=== PATIENT | female | born 1940 | race Caucasian/White ===

== ENCOUNTER 2017-08-14 11:52 | Observation (INO) | payer MEDICARE, BC ==
[2017-08-14] MEDS ORDERED: KETOROLAC 30 MG/ML 1 ML VIAL IVP STA (12:23)
[2017-08-14] MEDS ORDERED: SODIUM CHLORIDE 0.9% 1,000 ML IV STA (12:23)
--- NOTE | 2017-08-14 12:50 | XR ---
EXAMINATION TYPE: XR chest 2V DATE OF EXAM: 08/14/2017 COMPARISON: Nuclear medicine total-body bone scan dated 01/26/2014. HISTORY: Chest pain with history of lung, breast and colon cancer. TECHNIQUE: Frontal and lateral views of the chest are obtained. FINDINGS: There is elevation of the right hemidiaphragm obscuring the right lower lobe on the fronta l image. No focal airspace disease is seen on the lateral image. Copious overlying soft tissues also partially obscure the lung bases on the frontal image. There is slight patient rotation shifting the mediastinum. No pneumothorax or sizable pleural effusion. Heart is upper limits of normal. Moderate m ultilevel degenerative changes of the thoracic spine are present. IMPRESSION: Right hemidiaphragm elevation and copious soft tissues obscure the frontal view of the l ower lobes however no focal consolidation or pleural effusion are seen on the lateral image.
[2017-08-14 12:54] LABS: Basophils # (A) 0.1 k/uL (0-0.2); Basophils % (A) 2 %; CH 31.4; CHCM 31.3; Eosinophils % (A) 1 %; HCT 45.7 % (34.0-46.0); HDW 2.51; HGB 14.6 gm/dL (11.4-16.0); Hypochromasia Slight; Luc # (Auto) 0.14; Luc % (Auto) 4; Lymphocytes # (A) 1.1 k/uL (1.0-4.8); Lymphocytes % (A) 31 %; MCH 32.1 pg (25.0-35.0); MCHC 31.9 g/dL (31.0-37.0); MCV 100.6 fL (80.0-100.0); Macrocytosis Slight; Monocytes # (A) 0.5 k/uL (0-1.0); Monocytes % (A) 13 %; Neutrophils # (A) 1.8 k/uL (1.3-7.7); Neutrophils % (A) 49 %; RBC 4.54 m/uL (3.80-5.40); RDW 14.7 % (11.5-15.5); WBC 3.6 k/uL (3.8-10.6)
[2017-08-14 13:03] LABS: Calcium 10.7 mg/dL (8.4-10.2); Total Bilirubin 0.6 mg/dL (0.2-1.3); Total Protein 7.4 g/dL (6.3-8.2)
--- NOTE | 2017-08-14 13:06 | ED ---
Chest Pain HPI - General Chief Complaint: Chest Pain Stated Complaint: Chest Pain Time Seen by Provider: 08/14/17 12:12 Source: patient, family, RN notes reviewed Mode of arrival: wheelchair Limitations: no limitations - History of Present Illness Initial Comments: This is a 76-year-old female who presents with complaints of chest pain is been going on for the past 2 weeks she states is fairly constant at worse this morning midsternal not really increasing with deep breathing though she feels that sometimes and she agrees also with certain movements he can feel it. She has a cough or phlegm production fevers chills or sweats. She also states she has some numbness to her lips bilaterally this morning when the pain was worse. She states was 7 and 8/10 severity. Sharp in nature but for the most part she cannot describe the pain. It does not seem to radiate. No dyspnea and no exertional dyspnea. MD Complaint: chest pain - Related Data Home Medications Medication Instructions Recorded Confirmed ALPRAZolam [Xanax] 0.25 mg PO DAILY PRN 08/14/17 08/14/17 Aspirin 325 mg PO DAILY 08/14/17 08/14/17 Benazepril HCl [Lotensin] 20 mg PO DAILY 08/14/17 08/14/17 Insulin NPH/Reg Insulin 70/30 30 units SQ BID 08/14/17 08/14/17 [humuLIN 70/30 VIAL] Allergies Allergy/AdvReac Type Severity Reaction Status Date / Time codeine Allergy Rash/Hives Verified 08/14/17 12:46 Review of Systems ROS Statement: Those systems with pertinent positive or pertinent negative responses have been documented in the HPI. ROS Other: All systems not noted in ROS Statement are negative. EKG Findings - EKG Results: EKG: interpreted by REYMUNDO, sinus rhythm (Sinus rhythm with a rate of 68. Interval 148 QRS 80 QT since QTC of 380/412 this is a normal-appearing EKG) Past Medical History Past Medical History: Cancer, Diabetes Mellitus, Hypertension Additional Past Medical History / Comment(s): lung ,colon and breast cancer History of Any Multi-Drug Resistant Organisms: None Reported Past Surgical History: Cholecystectomy, Hysterectomy Past Psychological History: No Psychological Hx Reported Smoking Status: Former smoker Past Alcohol Use History: Rare Past Drug Use History: None Reported General Exam - General Exam Comments Initial Comments: This is a well up well-nourished awake alert oriented 3 female Limitations: no limitations General appearance: alert, anxious Head exam: Present: atraumatic, normocephalic, normal inspection Eye exam: Present: normal appearance, PERRL, EOMI. Absent: scleral icterus, conjunctival injection, periorbital swelling ENT exam: Present: normal exam, mucous membranes moist Neck exam: Present: normal inspection. Absent: tenderness, meningismus, lymphadenopathy Respiratory exam: Present: normal lung sounds bilaterally, chest wall tenderness. Absent: respiratory distress, wheezes, rales, rhonchi, stridor Cardiovascular Exam: Present: regular rate, normal rhythm, normal heart sounds. Absent: systolic murmur, diastolic murmur, rubs, gallop, clicks GI/Abdominal exam: Present: soft, normal bowel sounds. Absent: distended, tenderness, guarding, rebound, rigid Extremities exam: Present: normal inspection, full ROM, normal capillary refill. Absent: tenderness, pedal edema, joint swelling, calf tenderness Back exam: Present: normal inspection Neurological exam: Present: alert, oriented X3, CN II-XII intact Psychiatric exam: Present: normal affect, normal mood Skin exam: Present: warm, dry, intact, normal color. Absent: rash Course Vital Signs 08/14/17 08/14/17 08/14/17 12:03 13:10 14:29 Temperature 97.8 F Pulse Rate 70 60 60 Respiratory 18 18 16 Rate Blood Pressure 193/115 148/63 146/69 O2 Sat by Pulse 96 99 98 Oximetry 08/14/17 08/14/17 14:57 15:41 Temperature Pulse Rate 83 82 Respiratory 16 16 Rate Blood Pressure 95/55 119/69 O2 Sat by Pulse 97 98 Oximetry - Reevaluation(s) Reevaluation #1: 08/14/17 16:03 Evaluation patient reveals she still has chest pain. This is after initial treatment. Nitroglycerin was given patient did have resolution of her chest pain with nitroglycerin. Chest Pain MDM - MDM I did discuss findings with the patient family patient does demonstrate evidence of acute coronary syndrome she did respond to nitroglycerin. The initial workup was negative however patient will be admitted for further evaluation I did discuss the case with Dr. Abreu. Critical Care Time Critical Care Time: Yes Critical Care Time: 31 minutes of critical care time which includes initial presentation with history physical labs x-rays reevaluation patient on several occasions. Discussion with the patient family discussed with Dr. Abreu admission orders and documentation of the above. Disposition Clinical Impression: Unstable angina pectoris Disposition: ADMITTED IP TO THIS [facility] Condition: Stable Referrals: David Abreu DO [Primary Care Provider] - 1-2 days
[2017-08-14 13:07] LABS: INR 1.1 (<1.2); Partial Thromboplastin Time 22.1 sec (22.0-30.0); Prothrombin Time 10.5 sec (9.0-12.0)
[2017-08-14 13:15] LABS: Creatine Kinase 160 U/L (30-135)
[2017-08-14 13:27] LABS: Troponin I <0.012 ng/mL (0.000-0.034)
[2017-08-14] MEDS ORDERED: NITROGLYCERIN SL TABS 0.4 MG TAB SUBLINGUAL STA (14:36)
[2017-08-14] MEDS ORDERED: NITROGLYCERIN SL TABS 0.4 MG TAB SUBLINGUAL PRN (16:05)
[2017-08-14] MEDS ORDERED: ASPIRIN 81 MG PO STA (16:05)
[2017-08-14] MEDS ORDERED: HEPARIN SODIUM,PORCINE 5,000 UNIT/ML 1 ML VIAL IV ONE (16:05)
[2017-08-14] MEDS ORDERED: SODIUM CHLORIDE 0.9% 1,000 ML IV SCH (16:15)
[2017-08-14] MEDS ORDERED: HEPARIN SOD,PORK IN 0.45% NACL 25,000 UNIT in 0.45% NACL 1 500ML.BAG IV SCH (16:15)
[2017-08-14] MEDS: INSULIN ASPART 100 UNIT/ML 1 ML 10 ML VIAL SQ SCH ×2 (18:32→21:29)
[2017-08-14] MEDS: NITROGLYCERIN OINT 1 INCH/GM PACKET TOPICAL SCH ×3 (18:32→23:39)
[2017-08-14 18:58] LABS: Creatine Kinase 124 U/L (30-135)
[2017-08-14 19:09] LABS: Creatine Kinase MB 1.7 ng/mL (0.0-2.4); Troponin I <0.012 ng/mL (0.000-0.034)
[2017-08-14 20:29] LABS: Glucose,Whole Blood 120 mg/dL (75-99)
[2017-08-14] MEDS: INSULIN NPH/REG INSULIN 70/30 300 UNIT/3 ML VIAL SQ SCH (21:37)
[2017-08-14] MEDS: ALPRAZolam 0.25 MG TAB PO PRN (21:46)
[2017-08-14] MEDS ORDERED: HEPARIN SODIUM,PORCINE 5,000 UNIT/ML 1 ML VIAL IV PRN (21:57)
[2017-08-15 01:18] LABS: Creatine Kinase 100 U/L (30-135)
[2017-08-15 01:30] LABS: Creatine Kinase MB 1.6 ng/mL (0.0-2.4); Troponin I <0.012 ng/mL (0.000-0.034)
[2017-08-15] MEDS: NITROGLYCERIN OINT 1 INCH/GM PACKET TOPICAL SCH ×3 (05:05→12:10)
[2017-08-15 07:27] LABS: Glucose,Whole Blood 139 mg/dL (75-99)
[2017-08-15 07:45] LABS: Cholesterol 223 mg/dL (<200); HDL Cholesterol 82 mg/dL (40-60)
[2017-08-15] MEDS: INSULIN ASPART 100 UNIT/ML 1 ML 10 ML VIAL SQ SCH ×4 (07:52→20:58)
[2017-08-15] MEDS ORDERED: ASPIRIN 325 MG TAB PO SCH (09:00)
--- NOTE | 2017-08-15 09:26 | P.HPIM ---
History of Present Illness H&P Date: 08/15/17 Chief Complaint: Chest pain 76-year-old female who presented to the emergency room on 08/14/2017 with a chief complaint of chest pain. The patient states she has been expressing chest pain on and off for the last 2 weeks. She states the pain is mostly and the left side of her chest but occasionally is near the epigastrium. She denies any recent episodes of nausea, vomiting, or diaphoresis. She denies any shortness of breath, congestion, or coughing. Yesterday she states she also began to have numbness and tingling of her lips and she decided to come to the emergency room for evaluation. Her daughter also relates that she has been dizzy lately and has a few falls at home over the past couple weeks. The patient has a history of lung cancer, breast cancer, and colon cancer with bowel resection. The patients daughter states the cancers were all separate primary sites and we not metastatic sites. She also has a history of diabetes mellitus, gastroesophageal reflux disease, and hypertension. She is a former cigarette smoker. In the emergency room, chest x-ray was completed which revealed right hemidiaphragm elevation and copious soft tissues obscuring the frontal view of the lower lobes. There was no consolidation or pleural effusion seen. Troponins were negative 3. D-dimer was 0.59. The patient did receive nitro which she states alleviated her chest pain completely. EKG was completed which revealed sinus rhythm. She was started on a heparin drip and sent to the observation for further evaluation. Cardiology was consulted. The patient was seen at the bedside with Dr. Abreu. Daughter at bedside. Patient is currently denying chest pain or pressure. Denies shortness of breath. She is on room air with oxygen saturations greater than 92%. Denies abdominal pain. Denies nausea or vomiting. Shes dizziness or lightheaded at this time. Vital signs are stable. Review of Systems GENERAL: Patient denies fever. Denies chills. Positive for recent lightheadedness and dizziness. EYES: Denies blurred vision. Denies vision changes. Denies eye pain. EARS, NOSE, MOUTH, & THROAT: Positive for numbness and tingling in her lips. Denies headache. Denies sore throat. Denies ear pain. RESPIRATORY: Denies cough. Denies shortness of breath. Denies sputum production. Denies hemoptysis. CARDIOVASCULAR: Positive for left sided chest pain, resolved with nitro. Denies chest pain or pressure. Denies palpitations. Denies arrhythmias. GASTROINTESTINAL: Denies abdominal pain. Denies diarrhea. Denies constipation. Denies nausea. Denies vomiting. Denies heartburn. Denies blood in the stool. GENITOURINARY: Denies urinary frequency. Denies burning. Denies dysuria. Denies cloudy urine. Denies blood in the urine. MUSCULOSKELETAL: Denies myalgias. Denies joint swelling. Denies decreased range of motion beyond patients baseline. INTEGUMENTARY: Denies pruitis. Denies rash. PSYCHIATRIC: Denies suicidal or homicial ideations. ENDOCRINE: Denies weight change. Denies polydipsia. Denies polyuria. HEMATOLOGIC: Denies bleeding disorders. Past Medical History Past Medical History: Cancer, Diabetes Mellitus, GERD/Reflux, Hypertension Additional Past Medical History / Comment(s): lung ,colon and lt breast cancer.constipation History of Any Multi-Drug Resistant Organisms: None Reported Past Surgical History: Bowel Resection, Breast Surgery, Cholecystectomy, Hysterectomy, Tubal Ligation Additional Past Surgical History / Comment(s): cataracts-lens implants, stones in salivary gland removed, "i had cancer twice in lt breast/lt breast bx/ masectomy. lt lower lobectomy d/t ca. Past Anesthesia/Blood Transfusion Reactions: Previous Problems w/ Anesthesia Additional Past Anesthesia/Blood Transfusion Reaction / Comment(s): itching after aa Smoking Status: Former smoker - Past Family History Mother Family Medical History: Coronary Artery Disease (CAD), Diabetes Mellitus Additional Family Medical History / Comment(s): cabg Father Family Medical History: Diabetes Mellitus, Myocardial Infarction (NM) Brother(s) Additional Family Medical History / Comment(s): dm-heart problems Medications and Allergies Home Medications Medication Instructions Recorded Confirmed Type ALPRAZolam [Xanax] 0.25 mg PO DAILY PRN 08/14/17 08/14/17 History Aspirin 325 mg PO DAILY 08/14/17 08/14/17 History Benazepril HCl [Lotensin] 20 mg PO DAILY 08/14/17 08/14/17 History Insulin NPH/Reg Insulin 70/30 30 units SQ BID 08/14/17 08/14/17 History [humuLIN 70/30 VIAL] Allergies Allergy/AdvReac Type Severity Reaction Status Date / Time codeine Allergy Rash/Hives Verified 08/14/17 12:46 Physical Exam Vitals: Vital Signs Temp Pulse Pulse Resp BP BP BP 08/15/17 03:59 97.4 F L 75 16 140/68 08/15/17 03:33 18 08/15/17 00:00 18 08/14/17 23:53 98 F 81 18 143/65 08/14/17 20:00 70 16 08/14/17 19:58 98.1 F 76 16 124/61 08/14/17 18:02 97.4 F L 70 18 151/74 08/14/17 17:05 75 18 110/65 08/14/17 15:41 82 16 119/69 08/14/17 14:57 83 16 95/55 08/14/17 14:29 60 16 146/69 08/14/17 13:10 60 18 148/63 08/14/17 12:03 97.8 F 70 18 193/115 Pulse Ox 08/15/17 03:59 94 L 08/15/17 03:33 08/15/17 00:00 08/14/17 23:53 95 08/14/17 20:00 08/14/17 19:58 95 08/14/17 18:02 98 08/14/17 17:05 100 08/14/17 15:41 98 08/14/17 14:57 97 08/14/17 14:29 98 08/14/17 13:10 99 08/14/17 12:03 96 Intake and Output 08/14/17 08/15/17 08/15/17 22:59 06:59 14:59 Intake Total 100 698.667 Balance 100 698.667 Intake: IV 280 Heparin Sod,Pork in 0.45% 140 NaCl 25,000 unit In 0.45 % NaCl 1 500ml.bag @ 11. 306 UNITS/KG/HR 20 mls/hr IV .Q24H [facility] Rx#: [id number] Sodium Chloride 0.9% 1, 140 000 ml @ 20 mls/hr IV . Q24H [facility] Rx#:[id number] Intake, IV Titration 168.667 Amount Heparin Sod,Pork in 0.45% 168.667 NaCl 25,000 unit In 0.45 % NaCl 1 500ml.bag @ 11. 306 UNITS/KG/HR 20 mls/hr IV .Q24H [facility] Rx#: [id number] Oral 100 250 Other: Voiding Method Toilet Toilet Toilet # Voids 2 Weight 87.3 kg GENERAL: This is a 76-year-old female in no apparent distress at the time of examination. Pleasant and cooperative. HEENT: Head is atraumatic, normocephalic. Pupils are equal, round, and reactive to light. Sclerae anicteric. Conjunctivae are clear. Mucus membranes of the mouth are moist. Neck is supple. RESPIRATORY: Clear to ausculation. No wheezes, rales, or rhonchi. No use of accessory muscles. Patient maintaining oxygen saturation greater than 92% on room air. No chest wall tenderness is noted on palpation or with deep breathing. CARDIOVASCULAR: Regular rate and rhythm. S1 and S2 noted. No JVD noted. No S3 or S4 noted. GASTROINTESTINAL: No distention noted. Abdomen soft and round. Normal active bowel sounds auscultated x 4 quadrants. No pain or tenderness noted upon palpation. INTEGUMENTARY: No cyanosis. No jaundice. No rashes noted. No cellulitis noted. EXTREMITIES: 2+ peripheral pulses. No evidence of peripheral edema. No calf tenderness noted. NEUROLOGIC: Cranial nerves II-XII intact. PSYCHIATRIC: Awake, alert, and oriented X 3. Appropriate affect. Intact judgement and insight. Results CBC & Chem 7: 08/14/17 12:38 08/14/17 12:38 Labs: Abnormal Lab Results - Last 24 Hours (Table) 08/14/17 08/14/17 08/14/17 Range/Units 12:38 12:38 12:38 WBC 3.6 L (3.8-10.6) k/uL MCV 100.6 H (80.0-100.0) fL APTT (22.0-30.0) sec BUN 22 H (7-17) mg/dL Creatinine 1.10 H (0.52-1.04) mg/dL POC Glucose (mg/dL) (75-99) mg/dL Calcium 10.7 H (8.4-10.2) mg/dL Total Creatine Kinase 160 H (30-135) U/L Cholesterol (<200) mg/dL LDL Cholesterol, Calc (0-99) mg/dL HDL Cholesterol (40-60) mg/dL 08/14/17 08/15/17 08/15/17 Range/Units 20:26 00:16 06:41 WBC (3.8-10.6) k/uL MCV (80.0-100.0) fL APTT 40.1 H (22.0-30.0) sec BUN (7-17) mg/dL Creatinine (0.52-1.04) mg/dL POC Glucose (mg/dL) 120 H (75-99) mg/dL Calcium (8.4-10.2) mg/dL Total Creatine Kinase (30-135) U/L Cholesterol 223 H (<200) mg/dL LDL Cholesterol, Calc 122 H (0-99) mg/dL HDL Cholesterol 82 H (40-60) mg/dL 08/15/17 08/15/17 Range/Units 06:41 07:13 WBC (3.8-10.6) k/uL MCV (80.0-100.0) fL APTT 64.9 H (22.0-30.0) sec BUN (7-17) mg/dL Creatinine (0.52-1.04) mg/dL POC Glucose (mg/dL) 139 H (75-99) mg/dL Calcium (8.4-10.2) mg/dL Total Creatine Kinase (30-135) U/L Cholesterol (<200) mg/dL LDL Cholesterol, Calc (0-99) mg/dL HDL Cholesterol (40-60) mg/dL Thrombosis Risk Factor Assmnt - Choose All That Apply Any of the Below Risk Factors Present?: Yes Each Factor Represents 1 point: Obesity (BMI >25) Other Risk Factors: Yes Each Risk Factor Represents 2 Points: Malignancy Each Risk Factor Represents 3 Points: Age 75 years or older Other congenital or acquired thrombophilia - If yes, enter type in comment: No Thrombosis Risk Factor Assessment Total Risk Factor Score: 6 Thrombosis Risk Factor Assessment Level: High Risk Assessment and Plan Plan: ASSESSMENT: Left sided chest pain, relieved with nitroglycerin, troponins negative, cardiology following Diabetes mellitus, type II Gastroesophageal reflux disease Essential hypertension History of breast, lung, and colon cancer with prior bowel resection History of nicotine dependence, patient is a former cigarette smoker PLAN: -Cardiology on consult. Appreciate recommendations and input -Continue heparin drip per cardiology -Echo ordered. Await results -CT brain to rule out malignancy secondary to dizziness and history of multiple primary cancers -Blood glucose accuchecks AC/HS -Continue Humulin 70/30 30 units BID -Home meds as appropriate -Monitor labs -GI prophylaxis: Protonix 40mg PO daily -DVT prophylaxis: Patient currently on heparin drip -Monitor vital signs and address as appropriate -Discharge planning: Patient to return home when stable -Further recommendations pending patient's course Nurse practitioner note has been reviewed by physician. Signing provider agrees with the documented findings, assessment, and plan of care.
--- NOTE | 2017-08-15 09:55 | CT ---
"EXAMINATION TYPE: CT brain wo con DATE OF EXAM: 08/15/2017 COMPARISON: NONE HISTORY: Dizziness. Hx of CA. No prior. Scanned by: LS and CS. CT DLP: 1034.3 mGycm Automated exposure control for dose reduction was used. Helical acquisition through the brain. FINDINGS: There is a curvilinear calcification present at the level of the internal carotid artery bifurcation on the left suggestive of a partially calcified internal carotid artery aneurysm measuring 10 to 11 m m in size. Periventricular white matter shows some patchy low attenuation. There is some cortical atr ophy. No evident hemorrhage or hydrocephalus. Visualized paranasal sinuses and mastoid air cells are normal. Calvarium and orbits are intact. IMPRESSION: LEFT INTERNAL CAROTID ARTERY ANEURYSM. AGE-RELATED CHANGES OF ATROPHY AND PROBABLE CHRONIC SMALL VESS EL ISCHEMIA. A [facility] message has been communicated to David Abreu DO via the [facility] | Critical Result sy stem on 08/15/2017 9:52 AM, Message ID [id number]."
[2017-08-15] MEDS ORDERED: AMINOPHYLLINE 500 MG/20 ML VIAL IV PRN (09:57)
[2017-08-15] MEDS ORDERED: REGADENOSON 0.4 MG/5 ML SYRINGE IV ONE (09:57)
[2017-08-15] MEDS: ALPRAZolam 0.25 MG TAB PO PRN ×2 (10:37→20:56)
--- NOTE | 2017-08-15 10:54 | ECHOF ---
Referral Reason:chest pain MEASUREMENTS -------- HEIGHT: 165.1 cm WEIGHT: 87.1 kg BP: 140/68 RVIDd: 2.9 cm (< 3.3) IVSd: 1.1 cm (0.6 - 1.1) LVIDd: 3.8 cm (3.9 - 5.3) LVPWd: 1.2 cm (0.6 - 1.1) IVSs: 1.7 cm LVIDs: 2.7 cm LVPWs: 1.9 cm LA Diam: 3.8 cm (2.7 - 3.8) LAESV Index (A-L): 17.79 ml/m Ao Diam: 3.2 cm (2.0 - 3.7) AV Cusp: 1.7 cm (1.5 - 2.6) MV EXCURSION: 14.577 mm (> 18.000) MV EF SLOPE: 19 mm/s (70 - 150) EPSS: 0.9 cm MV E Reid: 0.72 m/s MV DecT: 391 ms MV A Reid: 1.12 m/s MV E/A Ratio: 0.65 RAP: 5.00 mmHg RVSP: 23.14 mmHg FINDINGS -------- Sinus rhythm. This was a technically adequate study. The left ventricular size is normal. There is borderline concentric left ventricular hypertrophy. Overall left ventricular systolic function is normal with, an EF between 60 - 65 %. The right ventricle is normal in size. Normal LA size by volume 22+/-6 ml/m2. The right atrium is normal in size. There is mild aortic valve sclerosis. The mitral valve leaflets are mildly thickened. Mild mitral annular calcification present. Mild tricuspid regurgitation present. Right ventricular systolic pressure is normal at < 35 mmHg. The pulmonic valve was not well visualized. The aortic root size is normal. Normal inferior vena cava with normal inspiratory collapse consistent with estimated right atrial pre ssure of 5 mmHg. There is no pericardial effusion. CONCLUSIONS -------- 1. Sinus rhythm. 2. This was a technically adequate study. 3. The left ventricular size is normal. 4. There is borderline concentric left ventricular hypertrophy. 5. Overall left ventricular systolic function is normal with, an EF between 60 - 65 %. 6. The right ventricle is normal in size. 7. Normal LA size by volume 22+/-6 ml/m2. 8. The right atrium is normal in size. 9. There is mild aortic valve sclerosis. 10. The mitral valve leaflets are mildly thickened. 11. Mild mitral annular calcification present. 12. Mild tricuspid regurgitation present. 13. Right ventricular systolic pressure is normal at < 35 mmHg. 14. The pulmonic valve was not well visualized. 15. The aortic root size is normal. 16. Normal inferior vena cava with normal inspiratory collapse consistent with estimated right atrial pressure of 5 mmHg. 17. There is no pericardial effusion. [employer] SAL[employer] ASSOCIATE: Malia Hawkins RDCS
[2017-08-15 12:09] LABS: Glucose,Whole Blood 158 mg/dL (75-99)
--- NOTE | 2017-08-15 12:55 | P.CRDCN ---
History of Present Illness Consult date: 08/15/17 Consult reason: chest pain History of present illness: Mrs. Wong is a pleasant 76-year-old female with past medical history significant for diabetes mellitus, hypertension, gastroesophageal reflux disease , breast cancer, colon cancer, lung cancer with right lobectomy and former tobacco use. She denies history of coronary artery disease and has never seen a walking dragline oiler for any reason. We have been asked to see her in consultation for complaints of chest pain, dizziness and shortness of breath. Her johnathan pain has been going on for approximately 2 weeks intermittently. It is located in the midsternal region and remains isolated to that region. She cannot specify aggravating or alleviating factors. Yesterday she noticed her mouth and jaw had a numb sensation similar to if she got a shot of lidocaine at the dentist office. This lasted for less than 30 minutes and resolved on its own. The dizziness seems to be related to movement and is worse when she is bending over or picking something up off the floor. The last episode occurred while she was taking the leash off her dog. While she was bending forward she "blacked out" and tumbled forward onto the ground. She denies definitive LOC. In the ED she was given sl nitroglycerin which seemed to help subside the pain somewhat but not completely. She denies associated palpitations, diaphoresis, nausea or vomiting. EKG on arrival reveals sinus mechanism with no acute ST or T-wave abnormalities. Chest xray revealed right hemidiaphragm elevation and copious soft tissue obscuring the frontal view of the lower lobes. Cardiac enzymes are negative x3, d-dimer is negative, hgb 14.6, plt 196, potassium 5.0, magnesium 2, BUN 22, Cr 1.1, LDL 122, HDL 82, triglycerides 97, total cholesterol 223. Blood pressure 140/68 with heart rate 75. Current cardiac medications include benazapril 20 mg daily and aspirin 81 mg daily. Review of Systems At the time of my exam: CONSTITUTIONAL: Denies fever. Denies chills. EYES: Denies blurred vision. Denies vision changes. Denies eye pain. EARS, NOSE, MOUTH & THROAT: Denies headache. Denies sore throat. Denies ear pain. CARDIOVASCULAR: Denies chest pain. Denies shortness of breath. Denies orthopnea. Denies PND. Denies palpitations. RESPIRATORY: Denies cough. GASTROINTESTINAL: Denies abdominal pain. Denies diarrhea. Denies constipation. Denies nausea. Denies vomiting. MUSCULOSKELETAL: Denies myalgias. INTEGUMENTARY: Denies pruitis. Denies rash. NEUROLOGIC: Denies numbness. Denies tingling. Denies weakness. PSYCHIATRIC: Denies anxiety. Denies depression. ENDOCRINE: Denies fatigue. Denies weight change. Denies polydipsia. Denies polyurina. GENITOURINARY: Denies burning, hematuria or urgency with micturation. HEMATOLOGIC: Denies history of anemia. Denies bleeding. Past Medical History Past Medical History: Cancer, Diabetes Mellitus, GERD/Reflux, Hypertension Additional Past Medical History / Comment(s): lung ,colon and lt breast cancer.constipation History of Any Multi-Drug Resistant Organisms: None Reported Past Surgical History: Bowel Resection, Breast Surgery, Cholecystectomy, Hysterectomy, Tubal Ligation Additional Past Surgical History / Comment(s): cataracts-lens implants, stones in salivary gland removed, "i had cancer twice in lt breast/lt breast bx/ masectomy. lt lower lobectomy d/t ca. Past Anesthesia/Blood Transfusion Reactions: Previous Problems w/ Anesthesia Additional Past Anesthesia/Blood Transfusion Reaction / Comment(s): itching after aa Smoking Status: Former smoker - Past Family History Mother Family Medical History: Coronary Artery Disease (CAD), Diabetes Mellitus Additional Family Medical History / Comment(s): cabg Father Family Medical History: Diabetes Mellitus, Myocardial Infarction (MS) Brother(s) Additional Family Medical History / Comment(s): dm-heart problems Medications and Allergies Home Medications Medication Instructions Recorded Confirmed Type ALPRAZolam [Xanax] 0.25 mg PO DAILY PRN 08/14/17 08/14/17 History Aspirin 325 mg PO DAILY 08/14/17 08/14/17 History Benazepril HCl [Lotensin] 20 mg PO DAILY 08/14/17 08/14/17 History Insulin NPH/Reg Insulin 70/30 30 units SQ BID 08/14/17 08/14/17 History [humuLIN 70/30 VIAL] Allergies Allergy/AdvReac Type Severity Reaction Status Date / Time codeine Allergy Rash/Hives Verified 08/14/17 12:46 Physical Exam Vitals: Vital Signs Temp Pulse Pulse Pulse Resp BP BP 08/15/17 12:00 98.1 F 84 16 155/83 08/15/17 08:00 98.8 F 76 16 123/66 08/15/17 03:59 97.4 F L 75 16 140/68 08/15/17 03:33 18 08/15/17 00:00 18 08/14/17 23:53 98 F 81 18 143/65 08/14/17 20:00 70 16 08/14/17 19:58 98.1 F 76 16 124/61 08/14/17 18:02 97.4 F L 70 18 08/14/17 17:05 75 18 110/65 08/14/17 15:41 82 16 119/69 08/14/17 14:57 83 16 95/55 08/14/17 14:29 60 16 146/69 08/14/17 13:10 60 18 148/63 BP Pulse Ox 08/15/17 12:00 96 08/15/17 08:00 96 08/15/17 03:59 94 L 08/15/17 03:33 08/15/17 00:00 08/14/17 23:53 95 08/14/17 20:00 08/14/17 19:58 95 08/14/17 18:02 151/74 98 08/14/17 17:05 100 08/14/17 15:41 98 08/14/17 14:57 97 08/14/17 14:29 98 08/14/17 13:10 99 Intake and Output 08/14/17 08/15/17 08/15/17 22:59 06:59 14:59 Intake Total 100 698.667 Balance 100 698.667 Intake: IV 280 Heparin Sod,Pork in 0.45% 140 NaCl 25,000 unit In 0.45 % NaCl 1 500ml.bag @ 11. 306 UNITS/KG/HR 20 mls/hr IV .Q24H [facility] Rx#: [id number] Sodium Chloride 0.9% 1, 140 000 ml @ 20 mls/hr IV . Q24H [facility] Rx#:[id number] Intake, IV Titration 168.667 Amount Heparin Sod,Pork in 0.45% 168.667 NaCl 25,000 unit In 0.45 % NaCl 1 500ml.bag @ 11. 306 UNITS/KG/HR 20 mls/hr IV .Q24H [facility] Rx#: [id number] Oral 100 250 Other: Voiding Method Toilet Toilet Toilet # Voids 2 Weight 87.3 kg GENERAL: This is a 76-year-old female in no apparent distress at the time of my examination. Obese. HEENT: Head is atraumatic, normocephalic. Pupils are equal, round. Sclerae anicteric. Conjunctivae are clear. Mucous membranes of the mouth are moist. Neck is supple. There is no jugular venous distention. No carotid bruit is heard. LUNGS: Clear to auscultation no wheezes, rales or rhonchi. No chest wall tenderness is noted on palpation or with deep breathing. HEART: Regular rate and rhythm without murmurs, rubs or gallops. S1 and S2 heard. ABDOMEN: Soft, nontender. Bowel sounds are heard. No organomegaly noted. EXTREMITIES: 2+ peripheral pulses with no evidence of peripheral edema and no calf tenderness noted. NEUROLOGIC: Patient is awake, alert and oriented x3. Results 08/14/17 12:38 08/14/17 12:38 Cardiac Enzymes 08/14/17 08/14/17 08/14/17 Range/Units 12:38 12:38 18:04 AST 27 (14-36) U/L CK-MB (CK-2) 2.0 1.7 (0.0-2.4) ng/mL Troponin I <0.012 <0.012 (0.000-0.034) ng/mL 08/15/17 Range/Units 00:16 AST (14-36) U/L CK-MB (CK-2) 1.6 (0.0-2.4) ng/mL Troponin I <0.012 (0.000-0.034) ng/mL Coagulation 08/14/17 08/15/17 08/15/17 Range/Units 12:38 00:16 06:41 PT 10.5 (9.0-12.0) sec APTT 22.1 40.1 H 64.9 H (22.0-30.0) sec Lipids 08/15/17 Range/Units 06:41 Triglycerides 97 (<150) mg/dL Cholesterol 223 H (<200) mg/dL HDL Cholesterol 82 H (40-60) mg/dL CBC 08/14/17 Range/Units 12:38 WBC 3.6 L (3.8-10.6) k/uL RBC 4.54 (3.80-5.40) m/uL Hgb 14.6 (11.4-16.0) gm/dL Hct 45.7 (34.0-46.0) % Plt Count 196 (150-450) k/uL Comprehensive Metabolic Panel 08/14/17 Range/Units 12:38 Sodium 140 (137-145) mmol/L Potassium 5.0 (3.5-5.1) mmol/L Chloride 106 (98-107) mmol/L Carbon Dioxide 25 (22-30) mmol/L BUN 22 H (7-17) mg/dL Creatinine 1.10 H (0.52-1.04) mg/dL Glucose 98 (74-99) mg/dL Calcium 10.7 H (8.4-10.2) mg/dL AST 27 (14-36) U/L ALT 45 (9-52) U/L Alkaline Phosphatase 59 (38-126) U/L Total Protein 7.4 (6.3-8.2) g/dL Albumin 4.2 (3.5-5.0) g/dL Current Medications Generic Name Dose Route Start Last Admin Trade Name Freq PRN Reason Stop Dose Admin Alprazolam 0.25 mg 08/14/17 16:07 08/15/17 10:37 Xanax PO 0.25 mg DAILY PRN Administration Anxiety Aminophylline 100 mg 08/15/17 09:57 Aminophylline IV ONCE PRN Patient Response Aspirin 325 mg 08/15/17 09:00 Aspirin PO DAILY [facility] Heparin Sodium (Porcine) 0 unit 08/14/17 21:57 08/15/17 01:30 Heparin IV 2,175 unit PER PROTOCOL PRN Administration Low PTT Protocol Heparin Sodium/Sodium Chloride 500 mls @ 20 mls/hr 08/14/17 16:15 08/15/17 01 :29 25,000 unit/ Sodium Chloride IV 13.3 units/kg/hr .Q24H [facility] 23.52 mls/hr Protocol Titration 11.306 UNITS/KG/HR Insulin Aspart 0 unit 08/14/17 17:30 08/15/17 07:52 Novolog SQ Not Given ACHS [facility] Protocol Insulin Human Isoph/Insulin Regular 30 unit 08/14/17 21:00 08/14/17 21:37 Humulin 70/30 Vial SQ Not Given BID [facility] Lisinopril 20 mg 08/15/17 09:00 Zestril PO DAILY [facility] Nitroglycerin 1 inch 08/14/17 18:00 08/15/17 12:10 Nitro-Bid Oint TOPICAL Not Given Q6HR [facility] Nitroglycerin 0.4 mg 08/14/17 16:05 Nitrostat SUBLINGUAL Q5M PRN Chest Pain Pantoprazole Sodium 40 mg 08/16/17 07:30 Protonix PO AC-BRKFST [facility] Sodium Chloride 10 ml 08/14/17 21:00 08/15/17 09:53 Saline Flush IV Not Given Q12HR [facility] Intake and Output 08/14/17 08/15/17 08/15/17 22:59 06:59 14:59 Intake Total 100 698.667 Balance 100 698.667 Intake: IV 280 Heparin Sod,Pork in 0.45% 140 NaCl 25,000 unit In 0.45 % NaCl 1 500ml.bag @ 11. 306 UNITS/KG/HR 20 mls/hr IV .Q24H [facility] Rx#: [id number] Sodium Chloride 0.9% 1, 140 000 ml @ 20 mls/hr IV . Q24H [facility] Rx#:[id number] Intake, IV Titration 168.667 Amount Heparin Sod,Pork in 0.45% 168.667 NaCl 25,000 unit In 0.45 % NaCl 1 500ml.bag @ 11. 306 UNITS/KG/HR 20 mls/hr IV .Q24H [facility] Rx#: [id number] Oral 100 250 Other: Voiding Method Toilet Toilet Toilet # Voids 2 Weight 87.3 kg 08/14/17 12:38 08/14/17 12:38 Assessment and Plan Assessment: ASSESSMENT 1. Chest pain, atypical with normal EKG and negative cardiac enzymes 2. Essential hypertension 3. Diabetes mellitus 4. Pre-syncope with no LOC 5. Dyslipidemia PLAN Obtain 2D echocardiogram and doppler study to assess cardiac structure and function. Perform Lexiscan stress test to rule out reversible cardiac ischemia. Recommend further evaluation of dizziness with possible CT of brain. Initiate atorvastatin 40 mg PO daily for 10-year ASCVD risk of 42.8%. Further recommendations will be based upon clinical course. Nurse Practitioner note has been reviewed, I agree with a documented findings and plan of care. Patient was seen and examined.
[2017-08-15] MEDS: LISINOPRIL 20 MG TAB PO SCH (14:04)
[2017-08-15] MEDS: ATORVASTATIN 40 MG TAB PO SCH ×2 (14:04→14:10)
[2017-08-15 14:10] LABS: Glucose,Whole Blood 150 mg/dL (75-99)
[2017-08-15] MEDS: INSULIN NPH/REG INSULIN 70/30 300 UNIT/3 ML VIAL SQ SCH ×2 (14:10→20:57)
--- NOTE | 2017-08-15 14:22 | NM ---
EXAMINATION TYPE: NM stress lexiscan cardiolite DATE OF EXAM: 08/15/2017 COMPARISON: NONE HISTORY: Chest pain, family history of cardiac disease, hypertension, diabetes and perioral numbness. TECHNIQUE: After the intravenous administration of 10.7 mCi Tc 99m Sestamibi - Cardiolite resting SP ECT images acquired 45 minutes post injection. The patient received 0.4mg Lexiscan, 28.1 mCi Tc 99m Sestamibi - Stress images obtained [address] injection FINDINGS: Review of stress and rest SPECT images demonstrates no reversible perfusion abnormality. A moderate 5 segment defect is seen of the inferoseptal ventricular wall in the distribution of the right main co ronary artery that is fixed appearing similar on rest and stress images compatible with old infarctio n. There is corresponding hypokinesis within these regions. No reversible ischemia. There is an estim ated left ventricular ejection fraction of 75 %. TID is calculated at 0.85, within normal limits. IMPRESSION: 1. No scintigraphic evidence for reversible ischemia. 2. 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 3. Estimated left ventricular ejection fraction of 75%.
[2017-08-15] MEDS: METOPROLOL TARTRATE 12.5 MG TAB PO SCH ×2 (16:20→20:24)
[2017-08-15] MEDS: ISOSORBIDE MONONITRATE ER 30 MG TAB.ER.24H PO SCH (16:20)
--- NOTE | 2017-08-15 16:46 | P.STRESS ---
- Stress Test Note Stress Test Results/Findings: Exam Performed: NM stress lexiscan cardiolite Exam Date: 08/15/17 Reason for Exam: Chest pain Height: 5 ft 5 in Weight: 87.3 kg Protocol: Katelyn scan Stage: na Duration of Exercise: na Resting Heart Rate: 88 Resting Blood Pressure: 174/89 Maximum Achieved Heart Rate: 127 Maximum Achieved Blood Pressure: 194/89 85% PMHR: na 100% PMHR: na METS: na Technologist Comment: Stress Test Results/Findings: Baseline EKG showed sinus rhythm. EKGs taken during and after the infusion did not reveal any changes to suggest ischemia. Final impression: #1. Negative legs scan stress test. #2. Report on nuclear images to begin by the radiologist.
--- NOTE | 2017-08-15 17:14 | CONS ---
CONSULTATION This is a 76-year-old, pleasant female came to the emergency room date of 08/14/2017 with history of chest pain. She has been experiencing pain on and off for the last 2 weeks. Patient was seen by Cardiology and had a complete work up. 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 There is no history of TIA or amaurosis fugax. Patient also has a history of lung cancer, breast cancer, and bowel resection. Patient also history of diabetes and hypertension and former cigarette smoker. PHYSICAL EXAMINATION: Patient is seen in her room. Her vitals signs stable. NECK: Supple. No bruit appreciated. CHEST: Clear to auscultation. ABDOMEN: Soft. Brachial, radial and femoral pulses are present. Patient has a normal motor function. 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 PLAN: I have reviewed the case with Dr. Ephraim Ng. This aneurysm of the internal carotid intracranially not at the bifurcation of the common and external carotid artery. We will discuss with Dr. Abreu. Probably we will have opinion from the neurosurgeon at a tertiary hospital at [facility] or [place]. At this point, patient is very stable from surgical point of view. MMODL / IJN: [id number] /
[2017-08-15 17:20] LABS: Glucose,Whole Blood 140 mg/dL (75-99)
[2017-08-15 20:48] LABS: Glucose,Whole Blood 188 mg/dL (75-99)
[2017-08-15] MEDS: ACETAMINOPHEN TAB 325 MG TAB PO PRN (20:55)
[2017-08-16] MEDS: ACETAMINOPHEN TAB 325 MG TAB PO PRN (06:35)
[2017-08-16 07:10] LABS: Glucose,Whole Blood 68 mg/dL (75-99)
[2017-08-16 07:20] LABS: Glucose,Whole Blood 86 mg/dL (75-99)
[2017-08-16] MEDS ORDERED: PANTOPRAZOLE 40 MG TABLET PO SCH (07:30)
[2017-08-16 08:32] VITALS: RESP 16
[2017-08-16] MEDS ORDERED: ASPIRIN 81 MG PO SCH (09:00)
[2017-08-16] MEDS: INSULIN ASPART 100 UNIT/ML 1 ML 10 ML VIAL SQ SCH ×2 (09:12→12:52)
[2017-08-16] MEDS: LISINOPRIL 20 MG TAB PO SCH (09:15)
[2017-08-16] MEDS: METOPROLOL TARTRATE 12.5 MG TAB PO SCH (09:15)
[2017-08-16 10:13] LABS: Glucose,Whole Blood 186 mg/dL (75-99)
[2017-08-16] MEDS: INSULIN NPH/REG INSULIN 70/30 300 UNIT/3 ML VIAL SQ SCH (10:35)
[2017-08-16 11:54] LABS: Glucose,Whole Blood 145 mg/dL (75-99)
[2017-08-16 12:06] VITALS: BP 179/79; PULSE 69; TEMP 97.5
[2017-08-16] MEDS: ALPRAZolam 0.25 MG TAB PO PRN (12:08)
--- NOTE | 2017-08-16 13:09 | P.DS ---
Providers Date of admission: 08/14/17 16:05 Attending physician: David Abreu Consults: 08/15/17 10:20 Consult Physician Routine Consulting Provider: Gato Mccurdy Consult Reason/Comments: 11mm carotid aneurysm Do you want consulting provider notified?: Yes Primary care physician: David Abreu Hospital Course: Patient was admitted for chest pain rule out acuted coronary syndromes patient underwent stress test which did not show any inducible ischemia patient is being discharged today in stable medical condition to home patient has an internal Carotid artery aneurysm for which a vascular surgery valid the patient did not recommending any further intervention at this point of time to recommended follow-up in a tertiary hospital neurosurgery clinic. Patient will follow-up with the Dr. David Abreu as an outpatient. PHYSICAL EXAMINATION: GENERAL: The patient is alert and oriented x3, not in any acute distress. Well developed, well nourished. HEENT: Pupils are round and equally reacting to light. EOMI. No scleral icterus. No conjunctival pallor. Normocephalic, atraumatic. No pharyngeal erythema. No thyromegaly. CARDIOVASCULAR: S1 and S2 present. No murmurs, rubs, or gallops. PULMONARY: Chest is clear to auscultation, no wheezing or crackles. ABDOMEN: Soft, nontender, nondistended, normoactive bowel sounds. No palpable organomegaly. MUSCULOSKELETAL: No joint swelling or deformity. EXTREMITIES: No cyanosis, clubbing, or pedal edema. NEUROLOGICAL: Gross neurological examination did not reveal any focal deficits. SKIN: No rashes. For her chronic medical problems and rest of the hospital aeration course please refer to Dr. Abreu and his nurse practitioners dictation. Patient is having headache from isosorbide mononitrate because of which this is being discontinued. Patient Condition at Discharge: Stable Plan - Discharge Summary Discharge Rx Participant: No New Discharge Prescriptions: New Aspirin 81 mg PO DAILY chew Metoprolol Tartrate [Lopressor] 12.5 mg PO BID #60 tab Continue Benazepril HCl [Lotensin] 20 mg PO DAILY No Action Insulin NPH/Reg Insulin 70/30 [humuLIN 70/30 VIAL] 30 units SQ BID Aspirin 325 mg PO DAILY ALPRAZolam [Xanax] 0.25 mg PO DAILY PRN PRN Reason: Anxiety Discharge Medication List ALPRAZolam [Xanax] 0.25 mg PO DAILY PRN 08/14/17 [History] Aspirin 325 mg PO DAILY 08/14/17 [History] Benazepril HCl [Lotensin] 20 mg PO DAILY 08/14/17 [History] Insulin NPH/Reg Insulin 70/30 [humuLIN 70/30 VIAL] 30 units SQ BID 08/14/17 [ History] Aspirin 81 mg PO DAILY chew 08/15/17 [Rx] Metoprolol Tartrate [Lopressor] 12.5 mg PO BID #60 tab 08/15/17 [Rx] Follow up Appointment(s)/Referral(s): David Abreu DO [Primary Care Provider] - 1-2 days Flaco Jaramillo MD [STAFF PHYSICIAN] - 2 Weeks (Pt prefers to see Dr. Jaramillo since that is who her follows with. ) Activity/Diet/Wound Care/Special Instructions: pt is to follow up with neurosurgeon at [facility] or [place] for carotid aneurysm Discharge Disposition: HOME SELF-CARE
[2017-08-16] MEDS: ISOSORBIDE MONONITRATE ER 30 MG TAB.ER.24H PO SCH (13:40)
== END 2017-08-16 13:45 | disposition home or self-care (01) ==
LOC: EC 11:52 → 3OBS 16:05
PROVIDERS: ADMIT Family Medicine; ATTEND Family Medicine
DX: R07.89 Other chest pain (principal); I67.1 Cerebral aneurysm, nonruptured; E11.9 Type 2 diabetes mellitus without complications; R20.0 Anesthesia of skin; R55 Syncope and collapse; G44.40 Drug-induced headache, not elsewhere classified, not intractable; R42 Dizziness and giddiness; K21.9 Gastro-esophageal reflux disease without esophagitis; E78.5 Hyperlipidemia, unspecified; R06.02 Shortness of breath; I10 Essential (primary) hypertension; E66.9 Obesity, unspecified; Z68.32 Body mass index [BMI] 32.0-32.9, adult; Z85.038 Personal history of other malignant neoplasm of large intestine; Z85.3 Personal history of malignant neoplasm of breast; Z83.3 Family history of diabetes mellitus; Z82.49 Family history of ischemic heart disease and other diseases of the circulatory system; Z87.891 Personal history of nicotine dependence; Z79.82 Long term (current) use of aspirin; Z79.899 Other long term (current) drug therapy; Z79.4 Long term (current) use of insulin; Z88.5 Allergy status to narcotic agent; Z90.49 Acquired absence of other specified parts of digestive tract; Z90.710 Acquired absence of both cervix and uterus; Z98.890 Other specified postprocedural states; Z90.12 Acquired absence of left breast and nipple; Z85.118 Personal history of other malignant neoplasm of bronchus and lung; Z90.2 Acquired absence of lung [part of]
CPT/HCPCS: 96366 ×2; 96376 ×2; 96361; 96365; 96375; 99291; 36415; 93005; 93017; 93306; 85379; 83880; 80061; 80053; 82550 ×2; 82553 ×2; 83735; 84484 ×2; 85025; 85610; 85730 ×2; 83036; 71020; 70450; 78452; G0378 ×3; A9500; J1644 ×3; J1885; J2785

== ENCOUNTER 2019-01-25 19:13 | Emergency (ER) | payer MEDICARE ==
[2019-01-25 19:46] LABS: Basophils % (A) 0 %; Eosinophils # (A) 0.2 k/uL (0-0.7); Eosinophils % (A) 3 %; HCT 40.3 % (34.0-46.0); HGB 13.2 gm/dL (11.4-16.0); Lymphocytes # (A) 1.1 k/uL (1.0-4.8); Lymphocytes % (A) 18 %; MCHC 32.8 g/dL (31.0-37.0); MCV 94.7 fL (80.0-100.0); Mean Platelet Volume 7.7; Monocytes # (A) 0.6 k/uL (0-1.0); Monocytes % (A) 10 %; Neutrophils # (A) 4.1 k/uL (1.3-7.7); Neutrophils % (A) 67 %; Platelet Count 219 k/uL (150-450); RBC 4.25 m/uL (3.80-5.40); RDW 13.8 % (11.5-15.5); WBC 6.2 k/uL (3.8-10.6)
--- NOTE | 2019-01-25 19:52 | ED ---
General Adult HPI - General Chief complaint: Dizziness Stated complaint: Chest Pain, Hypoglycemia Time Seen by Provider: 01/25/19 19:23 Source: patient Mode of arrival: wheelchair Limitations: no limitations - History of Present Illness Initial comments: Dictation was produced using Kartela dictation software. please excuse any grammatical, word or spelling errors. Chief Complaint: 78-year-old female presents with dizziness and chest pain. History of Present Illness: Patient is a 78-year-old female she is a insulin-dependent diabetic. CLOtest 2 weeks she's been feeling slightly dizzy. She woke this morning with a jugular 179 she gave herself 25 units of insulin. She normally does this and actually has been decreasing her insulin administration amounts. States that shortly after she felt dizzy and had Oral paresthesias. Checked her sugar was found to be in the 50s. She has eaten multiple things in an attempt to raise her sugar however she has been consistently been in the 50s. Patient denies having an chief ophthalmic technician. States that her diabetes is managed along with her primary care physician. Patient also has secondary complaint of chest pain. She states sharp in nature with deep inspiration. There has any cough or dysuria. No constitutional symptoms. Reports being under a lot of stress given that her is sick and needs a lot of assistance at home. The ROS documented in this emergency department record has been reviewed and confirmed by me. Those systems with pertinent positive or negative responses have been documented in the HPI. All other systems are other negative and/or n oncontributory. PHYSICAL EXAM: General Impression: Alert and oriented x3, not in acute distress HEENT: Normocephalic atraumatic, extra-ocular movements intact, pupils equal and reactive to light bilaterally, mucous membranes moist. Cardiovascular: Heart regular rate and rhythm, S1&S2 audible, no murmurs, rubs or gallops Chest: Lungs clear to auscultation bilaterally, no rhonchi, no wheeze, no rales Abdomen: Bowel sounds present, abdomen soft, non-tender, non-distended, no organomegaly Musculoskeletal: Pulses present and equal in all extremities, no peripheral edema Motor: no focal deficits noted Neurological: CN II-XII grossly intact, no focal motor or sensory deficits noted Skin: Intact with no visualized rashes Psych: Normal affect and mood ED course: 78-year-old female presents with dizziness and hypoglycemia at home. Vital signs upon arrival are within acceptable limits. Point care blood glucose performed in triage was 59. Laboratory evaluation obtained. CBC, coag panel, metabolic panel is obtained. Patient has hypoglycemia 53. Patient was given oral glucose and by mouth intake. Patient's blood sugar was monitored with stable findings in the 70s. Patient's symptoms likely secondary to excessive insulin. Patient told to hold her insulin for the next 24 hours and to make an appointment with her primary care physician for outpatient management of hyperglycemia. Patient has good social situation and lives next door to her family. She does have a glucometer at home and can monitor her blood sugar regular basis. Return parameters discussed. Patient comfortable with discharge. Patient told to eat a large meal when she gets home. EKG interpretation: Ventricular rate 67, normal sinus rhythm, OH interval 162, QRS 82, QTc 439. No OH prolongation, no QTC prolongation, no ST or T-wave changes noted. Overall, this EKG is unremarkable - Related Data Home Medications Medication Instructions Recorded Confirmed Aspirin 325 mg PO DAILY 08/14/17 01/25/19 Benazepril HCl [Lotensin] 20 mg PO DAILY 08/14/17 01/25/19 ALPRAZolam [Xanax] 1 mg PO BID 01/25/19 01/25/19 Escitalopram [Lexapro] 5 mg PO DAILY 01/25/19 01/25/19 Insulin NPH Hum/Reg Insulin Hm 25 unit SQ AC-BRKFST 01/25/19 01/25/19 [Novolin 70-30 Flexpen] Insulin NPH Hum/Reg Insulin Hm See Protocol SQ HS 01/25/19 01/25/19 [Novolin 70-30 Flexpen] Allergies Allergy/AdvReac Type Severity Reaction Status Date / Time codeine Allergy Rash/Hives Verified 01/25/19 19:32 Review of Systems ROS Statement: Those systems with pertinent positive or pertinent negative responses have been documented in the HPI. ROS Other: All systems not noted in ROS Statement are negative. Past Medical History Past Medical History: Cancer, Diabetes Mellitus, GERD/Reflux, Hypertension Additional Past Medical History / Comment(s): lung ,colon and lt breast cancer.constipation History of Any Multi-Drug Resistant Organisms: None Reported Past Surgical History: Bowel Resection, Breast Surgery, Cholecystectomy, Hysterectomy, Tubal Ligation Additional Past Surgical History / Comment(s): cataracts-lens implants, stones in salivary gland removed, "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 lt lower lobectomy d/t ca. Past Anesthesia/Blood Transfusion Reactions: Previous Problems w/ Anesthesia Additional Past Anesthesia/Blood Transfusion Reaction / Comment(s): itching after aa Past Psychological History: No Psychological Hx Reported Smoking Status: Former smoker Past Alcohol Use History: Occasional Past Drug Use History: None Reported - Past Family History Mother Family Medical History: Coronary Artery Disease (CAD), Diabetes Mellitus Additional Family Medical History / Comment(s): cabg Father Family Medical History: Diabetes Mellitus, Myocardial Infarction ([place]) Brother(s) Additional Family Medical History / Comment(s): dm-heart problems General Exam Limitations: no limitations Course Vital Signs 01/25/19 01/25/19 01/25/19 19:18 19:40 19:43 Temperature 97.5 F L Pulse Rate 84 70 Pulse Rate [ 66 Bilateral Crisis Intervention Specialist ] Respiratory 18 18 Rate Blood Pressure 120/73 139/71 O2 Sat by Pulse 95 96 Oximetry 01/25/19 01/25/19 01/25/19 19:47 20:42 22:17 Temperature 98 F Pulse Rate 69 71 Pulse Rate [ Bilateral Crisis Intervention Specialist ] Respiratory 18 16 16 Rate Blood Pressure 124/74 138/98 O2 Sat by Pulse 98 97 Oximetry Medical Decision Making - Lab Data Result diagrams: 01/25/19 19:33 01/25/19 19:33 Lab Results 01/25/19 01/25/19 01/25/19 Range/Units 19:33 19:33 19:33 WBC 6.2 (3.8-10.6) k/uL RBC 4.25 (3.80-5.40) m/uL Hgb 13.2 (11.4-16.0) gm/dL Hct 40.3 (34.0-46.0) % MCV 94.7 (80.0-100.0) fL MCH 31.0 (25.0-35.0) pg MCHC 32.8 (31.0-37.0) g/dL RDW 13.8 (11.5-15.5) % Plt Count 219 (150-450) k/uL Neutrophils % 67 % Lymphocytes % 18 % Monocytes % 10 % Eosinophils % 3 % Basophils % 0 % Neutrophils # 4.1 (1.3-7.7) k/uL Lymphocytes # 1.1 (1.0-4.8) k/uL Monocytes # 0.6 (0-1.0) k/uL Eosinophils # 0.2 (0-0.7) k/uL Basophils # 0.0 (0-0.2) k/uL PT 10.8 (9.0-12.0) sec INR 1.0 (<1.2) APTT 23.0 (22.0-30.0) sec Sodium 140 (137-145) mmol/L Potassium 4.4 (3.5-5.1) mmol/L Chloride 109 H (98-107) mmol/L Carbon Dioxide 23 (22-30) mmol/L Anion Gap 8 mmol/L BUN 22 H (7-17) mg/dL Creatinine 0.91 (0.52-1.04) mg/dL Est GFR (CKD-EPI)AfAm 70 (>60 ml/min/1.73 sqM) Est GFR (CKD-EPI)NonAf 61 (>60 ml/min/1.73 sqM) Glucose 53 L (74-99) mg/dL POC Glucose (mg/dL) (75-99) mg/dL POC Glu Drafting Technician ID Calcium 9.9 (8.4-10.2) mg/dL Magnesium 1.8 (1.6-2.3) mg/dL Total Bilirubin 0.6 (0.2-1.3) mg/dL AST 26 (14-36) U/L ALT 14 (9-52) U/L Alkaline Phosphatase 58 (38-126) U/L Troponin I (0.000-0.034) ng/mL NT-Pro-B Natriuret Pep pg/mL Total Protein 7.9 (6.3-8.2) g/dL Albumin 4.4 (3.5-5.0) g/dL 01/25/19 01/25/19 01/25/19 Range/Units 19:33 19:33 20:34 WBC (3.8-10.6) k/uL RBC (3.80-5.40) m/uL Hgb (11.4-16.0) gm/dL Hct (34.0-46.0) % MCV (80.0-100.0) fL MCH (25.0-35.0) pg MCHC (31.0-37.0) g/dL RDW (11.5-15.5) % Plt Count (150-450) k/uL Neutrophils % % Lymphocytes % % Monocytes % % Eosinophils % % Basophils % % Neutrophils # (1.3-7.7) k/uL Lymphocytes # (1.0-4.8) k/uL Monocytes # (0-1.0) k/uL Eosinophils # (0-0.7) k/uL Basophils # (0-0.2) k/uL PT (9.0-12.0) sec INR (<1.2) APTT (22.0-30.0) sec Sodium (137-145) mmol/L Potassium (3.5-5.1) mmol/L Chloride (98-107) mmol/L Carbon Dioxide (22-30) mmol/L Anion Gap mmol/L BUN (7-17) mg/dL Creatinine (0.52-1.04) mg/dL Est GFR (CKD-EPI)AfAm (>60 ml/min/1.73 sqM) Est GFR (CKD-EPI)NonAf (>60 ml/min/1.73 sqM) Glucose (74-99) mg/dL POC Glucose (mg/dL) 79 (75-99) mg/dL POC Glu Drafting Technician Dee Dee Cardenas Calcium (8.4-10.2) mg/dL Magnesium (1.6-2.3) mg/dL Total Bilirubin (0.2-1.3) mg/dL AST (14-36) U/L ALT (9-52) U/L Alkaline Phosphatase (38-126) U/L Troponin I <0.012 (0.000-0.034) ng/mL NT-Pro-B Natriuret Pep 203 pg/mL Total Protein (6.3-8.2) g/dL Albumin (3.5-5.0) g/dL 01/25/19 01/25/19 Range/Units 22:19 22:41 WBC (3.8-10.6) k/uL RBC (3.80-5.40) m/uL Hgb (11.4-16.0) gm/dL Hct (34.0-46.0) % MCV (80.0-100.0) fL MCH (25.0-35.0) pg MCHC (31.0-37.0) g/dL RDW (11.5-15.5) % Plt Count (150-450) k/uL Neutrophils % % Lymphocytes % % Monocytes % % Eosinophils % % Basophils % % Neutrophils # (1.3-7.7) k/uL Lymphocytes # (1.0-4.8) k/uL Monocytes # (0-1.0) k/uL Eosinophils # (0-0.7) k/uL Basophils # (0-0.2) k/uL PT (9.0-12.0) sec INR (<1.2) APTT (22.0-30.0) sec Sodium (137-145) mmol/L Potassium (3.5-5.1) mmol/L Chloride (98-107) mmol/L Carbon Dioxide (22-30) mmol/L Anion Gap mmol/L BUN (7-17) mg/dL Creatinine (0.52-1.04) mg/dL Est GFR (CKD-EPI)AfAm (>60 ml/min/1.73 sqM) Est GFR (CKD-EPI)NonAf (>60 ml/min/1.73 sqM) Glucose (74-99) mg/dL POC Glucose (mg/dL) 74 L 74 L (75-99) mg/dL POC Glu Drafting Technician Lenore Wallace Jessica Calcium (8.4-10.2) mg/dL Magnesium (1.6-2.3) mg/dL Total Bilirubin (0.2-1.3) mg/dL AST (14-36) U/L ALT (9-52) U/L Alkaline Phosphatase (38-126) U/L Troponin I (0.000-0.034) ng/mL NT-Pro-B Natriuret Pep pg/mL Total Protein (6.3-8.2) g/dL Albumin (3.5-5.0) g/dL Disposition Clinical Impression: Hypoglycemia Disposition: HOME SELF-CARE Condition: Good Instructions (If sedation given, give patient instructions): Hypoglycemia in a Person with Diabetes (ED) Is patient prescribed a controlled substance at d/c from ED?: No Referrals: David Abreu DO [Primary Care Provider] - 1-2 days Time of Disposition: 22:54
--- NOTE | 2019-01-25 19:54 | XR ---
EXAMINATION TYPE: XR chest 2V DATE OF EXAM: 01/25/2019 COMPARISON: 08/14/2017 HISTORY: Chest pain TECHNIQUE: Frontal and lateral views of the chest are obtained. FINDINGS: There is mild elevated right diaphragm. There is no heart failure. Heart size is normal. C ostophrenic angles are clear. There our chest leads. Bony thorax is intact. IMPRESSION: Mild chronic elevation of the right diaphragm. No acute lung disease. No change.
[2019-01-25 19:55] LABS: Albumin 4.4 g/dL (3.5-5.0); Calcium 9.9 mg/dL (8.4-10.2); Magnesium 1.8 mg/dL (1.6-2.3); Potassium 4.4 mmol/L (3.5-5.1); Total Bilirubin 0.6 mg/dL (0.2-1.3); Total Protein 7.9 g/dL (6.3-8.2)
[2019-01-25 20:00] LABS: Prothrombin Time 10.8 sec (9.0-12.0)
[2019-01-25] MEDS ORDERED: DEXTROSE 50% SYRINGE 50 ML IVP STA (20:31)
[2019-01-25 20:43] VITALS: TEMP 98
[2019-01-25 20:48] LABS: Glucose,Whole Blood 79 mg/dL (75-99)
[2019-01-25 22:44] LABS: Glucose,Whole Blood 74 mg/dL (75-99)
[2019-01-25 22:44] LABS: Glucose,Whole Blood 74 mg/dL (75-99)
[2019-01-25 23:01] VITALS: PULSE 66; RESP 18
[2019-01-25 23:16] VITALS: BP 155/72
[2019-01-26 07:51] LABS: Glucose,Whole Blood 59 mg/dL (75-99)
== END 2019-01-25 23:25 | disposition home or self-care (01) ==
LOC: EC 19:13
DX: E11.649 Type 2 diabetes mellitus with hypoglycemia without coma (principal); R07.1 Chest pain on breathing; I10 Essential (primary) hypertension; Z85.118 Personal history of other malignant neoplasm of bronchus and lung; Z85.038 Personal history of other malignant neoplasm of large intestine; Z85.3 Personal history of malignant neoplasm of breast; Z87.19 Personal history of other diseases of the digestive system; Z87.891 Personal history of nicotine dependence; Z82.49 Family history of ischemic heart disease and other diseases of the circulatory system; Z83.3 Family history of diabetes mellitus; Z79.82 Long term (current) use of aspirin; Z79.4 Long term (current) use of insulin; Z79.899 Other long term (current) drug therapy; Z88.5 Allergy status to narcotic agent; Z53.8 Procedure and treatment not carried out for other reasons
CPT/HCPCS: 36415; 71046; 80053; 83735; 83880; 84484; 85025; 85610; 85730; 93005; 99284

== ENCOUNTER 2021-09-11 17:19 | Observation (INO) | payer MEDICARE ==
[2021-09-11 17:41] LABS: Glucose,Whole Blood 39 mg/dL (75-99)
[2021-09-11] MEDS ORDERED: DEXTROSE 50% SYRINGE 50 ML IVP STA ×2 (17:43→18:41)
--- NOTE | 2021-09-11 18:06 | ED ---
General Adult HPI - General Chief complaint: Dizziness Stated complaint: Dizziness Time Seen by Provider: 09/11/21 17:31 Source: patient Mode of arrival: wheelchair Limitations: no limitations - History of Present Illness Initial comments: Dictation was produced using Manta dictation software. please excuse any grammatical, word or spelling errors. Chief Complaint: 80-year-old feel presents for dizziness and lower extremity paresthesias History of Present Illness: Patient is 80-year-old. She presents to the emergency department for dizziness. Patient states that her story begins back in July when she was diagnosed with intracranial aneurysm. This aneurysm was diagnosed at [facility]. She was transferred to [facility] in [place] where she had some sort of procedure to treat the aneurysm. She was in the hospital for approximately one week. She was discharged home in stable medical condition. Several weeks later she is had episode of strokelike symptoms. She sought medical attention at [facility]. She was worked up and discharged home. Shortly after being discharged from the emergency room she started to have strokelike symptoms. They presented to [facility] where she was then transferred back to [place]. She daughter and patient reports that while hospitalized inpatient she had multiple strokes and mini strokes. Ultimately she had a loop of cord that was implanted. She had her follow-up will appointment couple days ago and they found out that the loop recorder was not functioning appropriately. Patient is here today for dizziness. Yesterday she had a similar episode which was short-lived. States that today she had increasing intensity and duration of dizziness episodes. Patient states she felt dizzy. She has chronic right lower extremity weakness. They're concerned that patient is having a recurrent stroke. Daughter states that patient has not been walking very well and falling to the side. Patient states that over the last several weeks she's developed paresthesias to her right lower extremity. Patient has a sensation of the room spinning. At bedside she is asymptomatic. She states that these dizziness comes and episodic waves. The ROS documented in this emergency department record has been reviewed and confirmed by me. Those systems with pertinent positive or negative responses have been documented in the HPI. All other systems are other negative and/or noncontributory. PHYSICAL EXAM: General Impression: Alert and oriented x3, not in acute distress HEENT: Normocephalic atraumatic, extra-ocular movements intact, pupils equal and reactive to light bilaterally, mucous membranes moist. Cardiovascular: Heart regular rate and rhythm Chest: Able to complete full sentences, no retractions, no tachypnea Abdomen: abdomen soft, non-tender, non-distended, no organomegaly Musculoskeletal: Absent DP and PT pulse in the right foot, ultrasound does not reveal any pulsatile waveforms on Doppler setting, no peripheral edema Motor: no focal deficits noted Neurological: CN II-XII grossly intact, very mild drift to the right lower extremity. No other deficits noted. Skin: Intact with no visualized rashes Psych: Normal affect and mood ED course: 80-year-old female presents emergency department for episodes of dizziness. She denies dizziness at this time vital signs upon arrival are within acceptable limits. Buttock care blood glucose was 39. Patient is given dextrose. Repeat was 255. Repeat blood glucose was 46. Patient given another dose of dextrose and started on dextrose drip. Laboratory evaluation obtained. CBC unremarkable. Coag panel is negative. Metabolic panel is unremarkable besides the hypoglycemia. Rest of labs unremarkable. Computed tomography scan of brains unremarkable. This x-ray is nonacute. Computed tomography scan of the aorta with right lower extremity runoff shows disease but no complete occlusion. There is appear to be limited distal arterial flow on the left posterior tibial artery at the ankle. Patient's symptoms she reports is minimal at the moment worse with exertion. States her symptoms been ongoing for 4 weeks. Patient not showing any signs of emergent acute ischemic limb. Nonetheless patient be admitted for hypoglycemia. Have vessel surgeon consulted for evaluation of peripheral arterial disease. Case discussed with Dr. Mccoy was went except patient's care. EKG interpretation: Ventricular rate 63, normal sinus rhythm, VT interval 150, QRS 96, QTC 435. No VT prolongation, no QTC prolongation, no ST or T-wave changes noted.. Overall, this EKG is unremarkable - Related Data Home Medications Medication Instructions Recorded Confirmed Aspirin 325 mg PO DAILY 08/14/17 09/11/21 Benazepril HCl [Lotensin] 20 mg PO DAILY 08/14/17 09/11/21 Escitalopram [Lexapro] 5 mg PO DAILY 01/25/19 09/11/21 ALPRAZolam [Xanax] 0.25 mg PO BID 09/11/21 09/11/21 Apixaban [Eliquis] 5 mg PO BID 09/11/21 09/11/21 Atorvastatin [Lipitor] 80 mg PO HS 09/11/21 09/11/21 Carvedilol [Coreg] 12.5 mg PO BID 09/11/21 09/11/21 Insulin Detemir (Levemir) [Levemir] 5 unit SQ HS 09/11/21 09/11/21 Insulin NPH Hum/Reg Insulin Hm See Protocol SQ AC-TID 09/11/21 09/11/21 [humuLIN 70/30 Kwikpen] Allergies Allergy/AdvReac Type Severity Reaction Status Date / Time codeine Allergy Rash/Hives Verified 09/11/21 18:36 Review of Systems ROS Statement: Those systems with pertinent positive or pertinent negative responses have been documented in the HPI. ROS Other: All systems not noted in ROS Statement are negative. Past Medical History Past Medical History: Cancer, CVA/TIA, Diabetes Mellitus, GERD/Reflux, Hypertension Additional Past Medical History / Comment(s): lung ,colon and lt breast cancer.constipation History of Any Multi-Drug Resistant Organisms: None Reported Past Surgical History: Bowel Resection, Breast Surgery, Cholecystectomy, Hysterectomy, Tubal Ligation Additional Past Surgical History / Comment(s): cataracts-lens implants, stones in salivary gland removed, "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 lt lower lobectomy d/t ca. Past Anesthesia/Blood Transfusion Reactions: Previous Problems w/ Anesthesia Additional Past Anesthesia/Blood Transfusion Reaction / Comment(s): itching after aa Past Psychological History: No Psychological Hx Reported Smoking Status: Former smoker Past Alcohol Use History: Occasional Past Drug Use History: None Reported - Past Family History Mother Family Medical History: Coronary Artery Disease (CAD), Diabetes Mellitus Additional Family Medical History / Comment(s): cabg Father Family Medical History: Diabetes Mellitus, Myocardial Infarction ([place]) Brother(s) Additional Family Medical History / Comment(s): dm-heart problems General Exam Limitations: no limitations Course Vital Signs 09/11/21 09/11/21 09/11/21 17:25 18:26 18:45 Temperature 98 F Pulse Rate 61 73 68 Respiratory 18 18 18 Rate Blood Pressure 169/88 189/86 O2 Sat by Pulse 97 99 98 Oximetry 09/11/21 19:42 Temperature Pulse Rate 59 L Respiratory 18 Rate Blood Pressure 189/93 O2 Sat by Pulse 99 Oximetry Medical Decision Making - Lab Data Result diagrams: 09/11/21 18:03 09/11/21 18:03 Lab Results 09/11/21 09/11/21 09/11/21 Range/Units 17:40 18:03 18:03 WBC 6.7 (3.8-10.6) k/uL RBC 3.95 (3.80-5.40) m/uL Hgb 13.4 (11.4-16.0) gm/dL Hct 39.8 (34.0-46.0) % MCV 100.6 H (80.0-100.0) fL MCH 33.8 (25.0-35.0) pg MCHC 33.6 (31.0-37.0) g/dL RDW 14.3 (11.5-15.5) % Plt Count 196 (150-450) k/uL MPV 8.7 Neutrophils % 68 % Lymphocytes % 16 % Monocytes % 10 % Eosinophils % 2 % Basophils % 0 % Neutrophils # 4.6 (1.3-7.7) k/uL Lymphocytes # 1.1 (1.0-4.8) k/uL Monocytes # 0.7 (0-1.0) k/uL Eosinophils # 0.2 (0-0.7) k/uL Basophils # 0.0 (0-0.2) k/uL Macrocytosis Slight PT 11.6 (9.0-12.0) sec INR 1.1 (<1.2) APTT 24.6 (22.0-30.0) sec Sodium (137-145) mmol/L Potassium (3.5-5.1) mmol/L Chloride (98-107) mmol/L Carbon Dioxide (22-30) mmol/L Anion Gap mmol/L BUN (7-17) mg/dL Creatinine (0.52-1.04) mg/dL Est GFR (CKD-EPI)AfAm (>60 ml/min/1.73 sqM) Est GFR (CKD-EPI)NonAf (>60 ml/min/1.73 sqM) Glucose (74-99) mg/dL POC Glucose (mg/dL) 39 L (75-99) mg/dL POC Glu Switch Adjuster ID Pj Newman Plasma Lactic Acid Yg (0.7-2.0) mmol/L Calcium (8.4-10.2) mg/dL Magnesium (1.6-2.3) mg/dL Total Bilirubin (0.2-1.3) mg/dL AST (14-36) U/L ALT (4-34) U/L Alkaline Phosphatase (38-126) U/L Total Protein (6.3-8.2) g/dL Albumin (3.5-5.0) g/dL 09/11/21 09/11/21 09/11/21 Range/Units 18:03 18:03 18:11 WBC (3.8-10.6) k/uL RBC (3.80-5.40) m/uL Hgb (11.4-16.0) gm/dL Hct (34.0-46.0) % MCV (80.0-100.0) fL MCH (25.0-35.0) pg MCHC (31.0-37.0) g/dL RDW (11.5-15.5) % Plt Count (150-450) k/uL MPV Neutrophils % % Lymphocytes % % Monocytes % % Eosinophils % % Basophils % % Neutrophils # (1.3-7.7) k/uL Lymphocytes # (1.0-4.8) k/uL Monocytes # (0-1.0) k/uL Eosinophils # (0-0.7) k/uL Basophils # (0-0.2) k/uL Macrocytosis PT (9.0-12.0) sec INR (<1.2) APTT (22.0-30.0) sec Sodium 140 (137-145) mmol/L Potassium 3.6 (3.5-5.1) mmol/L Chloride 103 (98-107) mmol/L Carbon Dioxide 25 (22-30) mmol/L Anion Gap 12 mmol/L BUN 22 H (7-17) mg/dL Creatinine 0.96 (0.52-1.04) mg/dL Est GFR (CKD-EPI)AfAm 65 (>60 ml/min/1.73 sqM) Est GFR (CKD-EPI)NonAf 57 (>60 ml/min/1.73 sqM) Glucose 35 L* (74-99) mg/dL POC Glucose (mg/dL) 255 H (75-99) mg/dL POC Glu Switch Adjuster ID Odette Miller Plasma Lactic Acid Yg 1.0 (0.7-2.0) mmol/L Calcium 9.6 (8.4-10.2) mg/dL Magnesium 1.7 (1.6-2.3) mg/dL Total Bilirubin 1.0 (0.2-1.3) mg/dL AST 31 (14-36) U/L ALT 18 (4-34) U/L Alkaline Phosphatase 66 (38-126) U/L Total Protein 7.4 (6.3-8.2) g/dL Albumin 4.1 (3.5-5.0) g/dL 09/11/21 09/11/21 09/11/21 Range/Units 18:41 19:37 20:34 WBC (3.8-10.6) k/uL RBC (3.80-5.40) m/uL Hgb (11.4-16.0) gm/dL Hct (34.0-46.0) % MCV (80.0-100.0) fL MCH (25.0-35.0) pg MCHC (31.0-37.0) g/dL RDW (11.5-15.5) % Plt Count (150-450) k/uL MPV Neutrophils % % Lymphocytes % % Monocytes % % Eosinophils % % Basophils % % Neutrophils # (1.3-7.7) k/uL Lymphocytes # (1.0-4.8) k/uL Monocytes # (0-1.0) k/uL Eosinophils # (0-0.7) k/uL Basophils # (0-0.2) k/uL Macrocytosis PT (9.0-12.0) sec INR (<1.2) APTT (22.0-30.0) sec Sodium (137-145) mmol/L Potassium (3.5-5.1) mmol/L Chloride (98-107) mmol/L Carbon Dioxide (22-30) mmol/L Anion Gap mmol/L BUN (7-17) mg/dL Creatinine (0.52-1.04) mg/dL Est GFR (CKD-EPI)AfAm (>60 ml/min/1.73 sqM) Est GFR (CKD-EPI)NonAf (>60 ml/min/1.73 sqM) Glucose (74-99) mg/dL POC Glucose (mg/dL) 46 L 89 114 H (75-99) mg/dL POC Glu Switch Adjuster Pj Valles Devin Porrett, Devin Plasma Lactic Acid Yg (0.7-2.0) mmol/L Calcium (8.4-10.2) mg/dL Magnesium (1.6-2.3) mg/dL Total Bilirubin (0.2-1.3) mg/dL AST (14-36) U/L ALT (4-34) U/L Alkaline Phosphatase (38-126) U/L Total Protein (6.3-8.2) g/dL Albumin (3.5-5.0) g/dL Critical Care Time Critical Care Time: Yes Total Critical Care Time: 33 Disposition Clinical Impression: Hypoglycemia, Arterial disease Disposition: ADMITTED IP TO THIS HOSP Condition: Critical Referrals: Mesfin Myers MD [Primary Care Provider] - 1-2 days
[2021-09-11 18:12] LABS: Glucose,Whole Blood 255 mg/dL (75-99)
[2021-09-11 18:12] LABS: Albumin 4.1 g/dL (3.5-5.0); Calcium 9.6 mg/dL (8.4-10.2); Magnesium 1.7 mg/dL (1.6-2.3); Potassium 3.6 mmol/L (3.5-5.1); Total Protein 7.4 g/dL (6.3-8.2)
[2021-09-11 18:20] LABS: INR 1.1 (<1.2); Partial Thromboplastin Time 24.6 sec (22.0-30.0); Prothrombin Time 11.6 sec (9.0-12.0)
[2021-09-11 18:28] LABS: Basophils % (A) 0 %; Eosinophils # (A) 0.2 k/uL (0-0.7); Eosinophils % (A) 2 %; HCT 39.8 % (34.0-46.0); HGB 13.4 gm/dL (11.4-16.0); Lymphocytes # (A) 1.1 k/uL (1.0-4.8); Lymphocytes % (A) 16 %; MCH 33.8 pg (25.0-35.0); MCHC 33.6 g/dL (31.0-37.0); MCV 100.6 fL (80.0-100.0); Macrocytosis Slight; Mean Platelet Volume 8.7; Monocytes # (A) 0.7 k/uL (0-1.0); Monocytes % (A) 10 %; Neutrophils # (A) 4.6 k/uL (1.3-7.7); Neutrophils % (A) 68 %; Platelet Count 196 k/uL (150-450); RBC 3.95 m/uL (3.80-5.40); RDW 14.3 % (11.5-15.5); WBC 6.7 k/uL (3.8-10.6)
--- NOTE | 2021-09-11 18:46 | XR ---
EXAMINATION TYPE: XR chest 1V portable DATE OF EXAM: 09/11/2021 COMPARISON: 01/25/2019 HISTORY: Chest pain TECHNIQUE: Single view FINDINGS: Heart is normal. Lungs are clear of consolidation. There is no heart failure. Thoracic aort a is atheromatous. There is mild elevation of the right diaphragm. Bony thorax appears intact. IMPRESSION: Mild chronic elevation of the right diaphragm without change. Left mastectomy noted. No a cute lung disease.
[2021-09-11 18:47] LABS: Glucose,Whole Blood 46 mg/dL (75-99)
[2021-09-11] MEDS ORDERED: DEXTROSE 10% IN WATER 1,000 ML with SODIUM CHLORIDE 2.5MEQ/ML VIAL 153.8 MEQ IV SCH (19:30)
[2021-09-11] MEDS: DEXTROSE 10% IN WATER 1,000 ML with SODIUM CHLORIDE 4MEQ/ML VIAL 153.8 MEQ IV SCH (19:38)
[2021-09-11 19:39] LABS: Glucose,Whole Blood 89 mg/dL (75-99)
--- NOTE | 2021-09-11 19:49 | CT ---
EXAMINATION TYPE: CT brain wo con DATE OF EXAM: 09/11/2021 COMPARISON: 08/15/2017 HISTORY: weakness, dizziness CT DLP: 1153.4 mGycm Automated exposure control for dose reduction was used. There is dense metal artifact apparently from aneurysm coils at the left proximal middle cerebral art jodie. There is cerebral cortical atrophy. There is no mass effect or midline shift. There is no sign o f intracranial hemorrhage. The calvarium is intact. Skull base appears intact. IMPRESSION: Mild atrophy. Previous surgery. No change compared to the old exam. Metal artifact significantly incr eased with increased coils compared to last exam. No acute intracranial abnormality.
--- NOTE | 2021-09-11 20:29 | CT ---
CT angiogram of the chest abdomen pelvis with runoffs History no pulse in the right leg. Comparison none. TECHNIQUE: Images obtained from the thoracic inlet to the bottom of the feet without and with IV contrast Isovue 100 mL. There are Three-D postprocessed images. The lungs are clear of consolidation. There is no evidence of a pulmonary mass. There is no mediastin al adenopathy. There are no hilar masses. Thoracic aorta is atheromatous. The ascending aorta measure s 3.4 cm. There is no aneurysm. There is no evidence of filling defect in the pulmonary arteries. The re is no pleural effusion. There is no pericardial effusion. Liver spleen pancreas appear intact. Gallbladder appears absent. There is large common bile duct. Int rahepatic bile ducts are not dilated. There is no adrenal mass. There is opacification of both kidneys. There is no hydronephrosis. There i s 2 cm cortical cyst upper pole left kidney. There is no retroperitoneal adenopathy. Ureters are not dilated. Bladder distends smoothly. There is no mesenteric edema. There is no ascites or free air. Th ere is no bowel obstruction. There is arterial flow in the celiac artery and superior mesenteric artery. There is arterial flow in the renal and iliac and femoral arteries. There is atherosclerotic plaque in the abdominal aorta. Th ere is no hemodynamic stenosis. There is no aortic aneurysm. There is arterial flow in the common internal and external iliac arteries bilaterally. There is ather osclerotic plaque and up to 50% narrowing of the proximal femoral arteries. There is variable plaque in the mid and distal femoral arteries bilaterally up to 30%. There is arterial flow in both poplitea l arteries. There is extensive bilateral plaque formation and calcification involving the anterior an d posterior tibial arteries and the peroneal arteries. There is suboptimal contrast density in the lo wer legs. As best as one can tell there is arterial flow in the left posterior tibial artery at the a nkle. There is no demonstrated definite arterial flow in the anterior and posterior tibial artery at the right ankle and right mid calf. There is no demonstrated arterial flow in the dorsalis pedis donald ry bilaterally. IMPRESSION: Atherosclerotic vascular disease. No evidence of any significant arterial flow seen below the main ti bial artery in the right calf and ankle. There is limited distal arterial flow in the left posterior tibial artery at the ankle. The occlusions could be confirmed with color Doppler ultrasound exam if c linically indicated. No evidence of thoracic or abdominal aortic aneurysm or dissection. Atheromatous abdominal aorta. No evidence of pulmonary embolism. There is multifocal plaque formation involving the femoral arteries proximally with up to 50% luminal narrowing.
[2021-09-11 20:35] LABS: Glucose,Whole Blood 114 mg/dL (75-99)
[2021-09-11] MEDS ORDERED: ONDANSETRON 4 MG/2 ML VIAL IVP PRN (21:06)
[2021-09-11] MEDS ORDERED: NALOXONE 0.4 MG/ML 1 ML VIAL IV PRN (21:06)
[2021-09-11 21:46] LABS: Glucose,Whole Blood 120 mg/dL (75-99)
[2021-09-11 23:39] LABS: Glucose,Whole Blood 124 mg/dL (75-99)
--- NOTE | 2021-09-12 00:35 | P.HPIM ---
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 The patient reports that over the past few weeks, she has had increasing difficulty ambulating. She now needs to hold onto surfaces to avoid falling due to an unsteady gait and feeling weak diffusely. She also reports that her insulin regimen was changed after she was hospitalized after she was diagnosed with an aneurysm at [facility] and was transferred to [facility] where she underwent repair in July 2021. She notes that since that time, her blood sugar control has been very poor with several episodes of hypoglycemia down to a blood sugar of 30s and as high as 400s at home. She reports that her dizziness feeling that she is going to faint and that it is not associated with standing up but that it occurs after a few moments of walking. She denied experiencing chest discomfort, palpitations, headaches, nausea, vomiting, shortness of breath. Denied focal weakness but did report some right lower extremity paresthesias occasionally. Denied right lower extremity weakness or pain. She underwent an extensive evaluation in the emergency room with a CT angiogram of the aorta with runoff showing no evidence of significant arterial flow was seen below the main tibial artery and the right calf and ankle. CT brain revealed mild atrophy. Chest x-ray was unremarkable. EKG showed normal sinus rhythm at 63 bpm with findings consistent for LVH. Upon presentation to the emergency room, the patient's blood glucose was 39 and subsequently increased to 255 but again dropped down to 46. Remaining labora tory evaluation was unremarkable. Review of systems: Pertinent positives and negatives as discussed in HPI, a complete review of systems was performed and all other systems are negative. Physical examination: General: non toxic, no distress, appears at stated age, overweight Derm: no unusual rashes/lesions no unusual ecchymoses, warm, dry Head: atraumatic, normocephalic, symmetric Eyes: EOMI, no lid lag, anicteric sclera, pupils equal round reactive to light ENT: Nose and ears atraumatic, no thrush, no pharyngeal erythema Neck: No thyromegaly, no cervical lymphadenopathy, trachea midline, supple Mouth: no lip lesion, mucus membranes moist Cardiovascular: S1S2 reg, no murmur, left dorsalis pedis pulse palpable, nonpalpable right dorsalis pedis pulse with severely diminished right posterior tibial pulse, no edema, capillary refill less than 2 seconds Lungs: CTA bilateral, no rhonchi, no rales , no accessory muscle use Abdominal: soft, nontender to palpation, no guarding, no appreciable organomegaly, normal bowel sounds Ext: no gross muscle atrophy, muscle strength 5 out of 5 in all 4 extremities grossly, no contractures, Neuro: CN II-XI grossly intact, light touch intact all 4 extremities, finger to nose within normal limits, Psych: Alert, oriented, appropriate affect Assessment/plan Dizziness, may be secondary to hypoglycemia versus recent CVAs -The patient states that she was switched from a fixed prandial short acting insulin to sliding scale which has been difficult for her -Hold off on home insulin at this time -Continue with insulin sliding scale as per protocol -Check A1c -Patient will need diabetic education -PT consult Right lower extremity paresthesias with diminished flow on CT angiogram -Vascular surgery consulted as patient does not currently follow with anyone DVT prophylaxis -Eliquteresa The patient is admitted with an anticipated less than 2 midnight stay for evaluation of dizziness CODE STATUS: Full Code Discussed with: Patient Anticipated discharge date: in am Anticipated discharge place: Home Past Medical History Past Medical History: Cancer, CVA/TIA, Diabetes Mellitus, GERD/Reflux, Hypertension Additional Past Medical History / Comment(s): lung ,colon and lt breast can cer.constipation History of Any Multi-Drug Resistant Organisms: None Reported Past Surgical History: Bowel Resection, Breast Surgery, Cholecystectomy, Hysterectomy, Tubal Ligation Additional Past Surgical History / Comment(s): cataracts-lens implants, stones in salivary gland removed, "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 lt lower lobectomy d/t ca. Past Anesthesia/Blood Transfusion Reactions: Previous Problems w/ Anesthesia Additional Past Anesthesia/Blood Transfusion Reaction / Comment(s): itching after aa Past Psychological History: No Psychological Hx Reported Smoking Status: Former smoker Past Alcohol Use History: Occasional Past Drug Use History: None Reported - Past Family History Mother Family Medical History: Coronary Artery Disease (CAD), Diabetes Mellitus Additional Family Medical History / Comment(s): cabg Father Family Medical History: Diabetes Mellitus, Myocardial Infarction ([place]) Brother(s) Additional Family Medical History / Comment(s): dm-heart problems Medications and Allergies Home Medications Medication Instructions Recorded Confirmed Type Aspirin 325 mg PO DAILY 08/14/17 09/11/21 History Benazepril HCl [Lotensin] 20 mg PO DAILY 08/14/17 09/11/21 History Escitalopram [Lexapro] 5 mg PO DAILY 01/25/19 09/11/21 History ALPRAZolam [Xanax] 0.25 mg PO BID 09/11/21 09/11/21 History Apixaban [Eliquis] 5 mg PO BID 09/11/21 09/11/21 History Atorvastatin [Lipitor] 80 mg PO HS 09/11/21 09/11/21 History Carvedilol [Coreg] 12.5 mg PO BID 09/11/21 09/11/21 History Insulin Detemir (Levemir) [Levemir] 5 unit SQ HS 09/11/21 09/11/21 History Insulin NPH Hum/Reg Insulin Hm See Protocol SQ AC-TID 09/11/21 09/11/21 History [humuLIN 70/30 Kwikpen] Allergies Allergy/AdvReac Type Severity Reaction Status Date / Time codeine Allergy Rash/Hives Verified 09/11/21 18:36 Physical Exam Vitals: Vital Signs Temp Pulse Resp BP Pulse Ox 09/11/21 23:00 61 18 154/69 97 09/11/21 19:42 59 L 18 189/93 99 09/11/21 18:45 68 18 98 09/11/21 18:26 73 18 189/86 99 09/11/21 17:25 98 F 61 18 169/88 97 Intake and Output 09/11/21 09/11/21 09/12/21 14:59 22:59 06:59 Other: Weight 80.739 kg Results CBC & Chem 7: 09/11/21 18:03 09/11/21 18:03 Labs: Abnormal Lab Results - Last 24 Hours (Table) 09/11/21 09/11/21 09/11/21 Range/Units 17:40 18:03 18:03 MCV 100.6 H (80.0-100.0) fL BUN 22 H (7-17) mg/dL Glucose 35 L* (74-99) mg/dL POC Glucose (mg/dL) 39 L (75-99) mg/dL 09/11/21 09/11/21 09/11/21 Range/Units 18:11 18:41 20:34 MCV (80.0-100.0) fL BUN (7-17) mg/dL Glucose (74-99) mg/dL POC Glucose (mg/dL) 255 H 46 L 114 H (75-99) mg/dL 09/11/21 09/11/21 Range/Units 21:44 23:38 MCV (80.0-100.0) fL BUN (7-17) mg/dL Glucose (74-99) mg/dL POC Glucose (mg/dL) 120 H 124 H (75-99) mg/dL
[2021-09-12 02:17] LABS: Glucose,Whole Blood 177 mg/dL (75-99)
[2021-09-12] MEDS: SODIUM CHLORIDE 0.9% 1,000 ML IV SCH (04:15)
[2021-09-12 04:20] LABS: Glucose,Whole Blood 137 mg/dL (75-99)
[2021-09-12] MEDS: DEXTROSE 10% IN WATER 1,000 ML with SODIUM CHLORIDE 4MEQ/ML VIAL 153.8 MEQ IV SCH (04:23)
[2021-09-12 06:07] LABS: African American GFR (CKD) 76 (>60 ml/min/1.73 sqM); Anion Gap 10 mmol/L; Blood Urea Nitrogen 16 mg/dL (7-17); Calcium 9.1 mg/dL (8.4-10.2); Carbon Dioxide 23 mmol/L (22-30); Chloride 107 mmol/L (98-107); Glucose 112 mg/dL (74-99); Non-African American GFR(CKD) 66 (>60 ml/min/1.73 sqM); Sodium 140 mmol/L (137-145)
[2021-09-12 06:08] LABS: Potassium 3.7 mmol/L (3.5-5.1)
[2021-09-12 06:56] LABS: Glucose,Whole Blood 91 mg/dL (75-99)
[2021-09-12] MEDS: INSULIN ASPART (NovoLOG) 100 UNIT/ML VIAL SQ SCH ×2 (08:26→13:43)
[2021-09-12] MEDS: carvediloL 12.5 MG TAB PO SCH ×2 (08:34→17:38)
[2021-09-12 10:25] LABS: Glucose,Whole Blood 152 mg/dL (75-99)
[2021-09-12] MEDS: ASPIRIN 325 MG TAB PO SCH (10:41)
[2021-09-12] MEDS: APIXABAN 5 MG TAB PO SCH ×2 (10:41→19:51)
[2021-09-12] MEDS: ESCITALOPRAM 5 MG TAB PO SCH (10:42)
--- NOTE | 2021-09-12 11:43 | P.PN ---
<Shay Larkin - Last Filed: 09/12/21 16:36> Subjective Progress Note Date: 09/12/21 Hospital course: Patient is a very pleasant 80-year-old female with a past medical history of insulin-dependent diabetes mellitus, hypertension, hyperlipidemia, and recently diagnosed with intracerebral aneurysms status post coiling followed by subsequent CVA with left sided deficits in July 2021. Patient remains on anticoagulation with Eliquis. She states she was discharged home from [facility] after CVA and was receiving physical therapy twice a week. Patient reports she was improving with the physical therapy but over the past month she has developed increased weakness, dizziness, issues with balance and coordination as well as difficulties with walking. Pt states that she is having difficulties and weakness in her right leg accompanied by numbness in her right foot. She was seen and fully evaluated in the emergency department. she was found to have significant hypoglycemia with blood glucose of 35. EKG was completed revealing normal sinus rhythm at [address]pm[address]She [address] brain which revealed mild atrophy with dense metal artifact secondary to aneurysm coils at the left proximal middle cerebral artery with no acute intracranial abnormality. CTA chest and abdomen with runoffs negative for PE and aneurysms, but revealing atherosclerotic vascular disease with concerns of occlusion with no evidence of any significant arterial flow seen below the main tibial artery and the right ankle and calf and limited distal arterial flow in the left posterior tibial artery at the ankle. Vascular surgery was consulted. Patient started on D5 infusion for hypoglycemia. She was admitted under our services with consult to vascular surgery. Insulin being discontinued at this time. Physical exam: Patient was seen and fully evaluated at the bedside this morning. She reports continued right lower extremity weakness as well as numbness in the right foot. She remains on D5 and blood glucose is 204, we will discontinue D5 and place patient on Q2 hour glucose checks to ensure that she maintains stable blood glucose levels. Discussed with RN importance of close monitoring. Ordered arterial doppler of RLE due to continued weakness in RLE and numbness in right foot. Pt denies having any pain in foot. No noted necrotic ulcers or discoloration. Cap refill less than 2 seconds. Vascular surgery consulted, awaiting recommendations. Vital signs reviewed and stable. General: Nontoxic, no distress and appears stated age. Derm: Skin warm and dry, normal coloration for ethnicity. Head: Atraumatic, normocephalic and symmetric. Eyes: EOMs intact, no lid lag, and anicteric sclera Mouth: no lip lesions, mucus membranes moist Cardiovascular: regular rate and rhythm with normal S1S2, no murmur, positive posterior tibial pulses bilaterally, and cap refill < 2 seconds. Lungs: Respirations even, regular, and unlabored on room air. Lungs CTA bilaterally, no rhonchi, no rales, no wheezing, and no accessory muscle usage. Abdominal: soft, nontender to palpation, no guarding, no appreciable organomegaly Ext: ROM intact. No gross muscle atrophy, no edema, no contractures, posterior tibial pulses palpated bilaterally. Neuro: Speech clear, face symmetrical and CN II-XII grossly intact with no noted focal neuro deficits Psych: Alert and oriented to person, place, time, and situation. Appropriate and pleasant affect. Assessment and Plan of Care: Dizziness, may be secondary to hypoglycemia versus recent CVAs -The patient states that she was switched from a fixed prandial short acting insulin to sliding scale which has been difficult for her -Hold off on home insulin at this time. -Continue with insulin sliding scale as per protocol -We will discontinue D5 and place patient on Q2 hour glucose checks to ensure that she maintains stable blood glucose levels. -Check A1c -Patient will need diabetic education -PT consult -Orthostatic vitals -Fall precautions Right lower extremity paresthesias with diminished flow on CT angiogram -Vascular surgery consulted as patient does not currently follow with anyone -Right lower extremity arterial Doppler to be completed. -neurovascular checks CODE STATUS: Full code DVT prophylaxis: Paoquis Discussed with: Patient, patient's daughter, and RN Anticipated discharge date: Clinical course to determine Anticipated discharge place: Home vs SNF, discussed possible SNF with patient and if meets requirements would like to go to [facility] as this is the shelter her is in. A total of 45 minutes was spent on the care of this complex patient more than 50% of the time was spent in counseling and care coordination. Objective - Vital Signs Vital signs: Vital Signs Temp 97.8 F 09/12/21 08:35 Pulse 89 09/12/21 08:35 Resp 18 09/12/21 08:35 BP 147/89 09/12/21 08:35 Pulse Ox 98 09/12/21 08:35 Intake & Output 09/11/21 09/12/21 09/12/21 18:59 06:59 18:59 Weight 80.739 kg - Labs CBC & Chem 7: 09/11/21 18:03 09/12/21 05:23 Labs: Abnormal Lab Results - Last 24 Hours (Table) 09/11/21 09/11/21 09/11/21 Range/Units 17:40 18:03 18:03 MCV 100.6 H (80.0-100.0) fL BUN 22 H (7-17) mg/dL Glucose 35 L* (74-99) mg/dL POC Glucose (mg/dL) 39 L (75-99) mg/dL 09/11/21 09/11/21 09/11/21 Range/Units 18:11 18:41 20:34 MCV (80.0-100.0) fL BUN (7-17) mg/dL Glucose (74-99) mg/dL POC Glucose (mg/dL) 255 H 46 L 114 H (75-99) mg/dL 09/11/21 09/11/21 09/12/21 Range/Units 21:44 23:38 02:16 MCV (80.0-100.0) fL BUN (7-17) mg/dL Glucose (74-99) mg/dL POC Glucose (mg/dL) 120 H 124 H 177 H (75-99) mg/dL 09/12/21 09/12/21 Range/Units 04:18 05:23 MCV (80.0-100.0) fL BUN (7-17) mg/dL Glucose 112 H (74-99) mg/dL POC Glucose (mg/dL) 137 H (75-99) mg/dL <Taurus Martinez - Last Filed: 09/12/21 18:49> Subjective I reviewed the documentation as provided by the LUZ MARIA above, who is the original author of this note. I agree with the documented assessment and plan, with the following changes: None Objective - Vital Signs Vital signs: Vital Signs Temp 98.3 F 09/12/21 14:59 Pulse 66 09/12/21 14:59 Resp 18 09/12/21 14:59 BP 146/83 09/12/21 14:59 Pulse Ox 98 09/12/21 14:59 Intake & Output 09/11/21 09/12/21 09/12/21 18:59 06:59 18:59 Intake Total 59 Balance 59 Weight 80.739 kg 80.739 kg Intake: Oral 59 Other: # Voids 2 - Labs CBC & Chem 7: 09/11/21 18:03 09/12/21 05:23 Labs: Abnormal Lab Results - Last 24 Hours (Table) 09/11/21 09/11/21 09/11/21 Range/Units 20:34 21:44 23:38 Glucose (74-99) mg/dL POC Glucose (mg/dL) 114 H 120 H 124 H (75-99) mg/dL Hemoglobin A1c (4.0-6.0) % 09/12/21 09/12/21 09/12/21 Range/Units 02:16 04:18 05:23 Glucose 112 H (74-99) mg/dL POC Glucose (mg/dL) 177 H 137 H (75-99) mg/dL Hemoglobin A1c (4.0-6.0) % 09/12/21 09/12/21 09/12/21 Range/Units 05:23 10:23 12:12 Glucose (74-99) mg/dL POC Glucose (mg/dL) 152 H 204 H (75-99) mg/dL Hemoglobin A1c 7.1 H (4.0-6.0) % 09/12/21 09/12/21 09/12/21 Range/Units 12:30 14:34 17:18 Glucose (74-99) mg/dL POC Glucose (mg/dL) 186 H 248 H 175 H (75-99) mg/dL Hemoglobin A1c (4.0-6.0) %
[2021-09-12 12:14] LABS: Glucose,Whole Blood 204 mg/dL (75-99)
[2021-09-12 12:32] LABS: Glucose,Whole Blood 186 mg/dL (75-99)
--- NOTE | 2021-09-12 13:32 | P.GSCN ---
History of Present Illness Consult date: 09/12/21 Reason for Consult: Peripheral vascular disease Requesting physician: Mu Crespo History of present illness: This is a 80-year-old female who presented to the emergency department with complaints of dizziness and weakness to her right lower extremity. Apparently the patient has a recent history of a brain aneurysm which she is unsure what it is related to an was seen at [facility] and then transferred to see [facility] in [place] and underwent procedure. She states then she was discharged and suffered a stroke which caused left upper extremity weakness which she states has improved since then. She has been having physical therapy at her home for which they told her she seemed a little weak on the right side. She states that she does feel that she does have some weakness with walking on the right lower extremity, although she states she has not buckled or fallen. She denies any other focal deficits other than dizziness for which she had a blood sugar of 35 on admission. She has a past medical history of breast cancer, CVA/TIA, diabetes mellitus, GERD, hypertension, and brain aneurysm. Denies being a current smoker however is a former smoker. She is currently on Eliquis 5 mg twice a day, aspirin and Lipitor 80 mg daily. Currently is denying any dizziness. She denies any pain to either of her extremities. She states that she walks around at home without a walker cane. Denies pain with walking. Denying any chest pain or shortness of breath. The patient had a CT of the brain on admission showing mild atrophy. Previous surgery no change compared to old exam. Metal artifacts significantly increased with increased coils compared to last exam. No acute intracranial abnormality. Patient also had a CT angiogram of the chest abdomen pelvis with runoff stating arthrosclerotic vascular disease. No evidence of any significant arterial flow seen below the mean tibial artery and the right calf and ankle. There is limited distal arterial flow in the left posterior tibial artery at the ankle. The occlusions could be confirmed with color Doppler ultrasound exam if clinically indicated. No evidence of thoracic or abdominal aortic aneurysm or dissection. Atheromatous abdominal aorta. No evidence of pulmonary embolism. There is multifocal plaque formation involving the femoral arteries proximally with up to 50% luminal narrowing. Review of Systems A 14 point review of systems was completed all pertinent positives and negatives as stated in the HPI Past Medical History Past Medical History: Cancer, CVA/TIA, Diabetes Mellitus, GERD/Reflux, Hypertension Additional Past Medical History / Comment(s): lung ,colon and lt breast cancer.constipation History of Any Multi-Drug Resistant Organisms: None Reported Past Surgical History: Bowel Resection, Breast Surgery, Cholecystectomy, Hysterectomy, Tubal Ligation Additional Past Surgical History / Comment(s): cataracts-lens implants, stones in salivary gland removed, "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 lt lower lobectomy d/t ca. Past Anesthesia/Blood Transfusion Reactions: Previous Problems w/ Anesthesia Additional Past Anesthesia/Blood Transfusion Reaction / Comm: itching after aa Past Psychological History: No Psychological Hx Reported Smoking Status: Former smoker Past Alcohol Use History: Occasional Past Drug Use History: None Reported - Past Family History Mother Family Medical History: Coronary Artery Disease (CAD), Diabetes Mellitus Additional Family Medical History / Comment(s): cabg Father Family Medical History: Diabetes Mellitus, Myocardial Infarction (ME) Brother(s) Additional Family Medical History / Comment(s): dm-heart problems Medications and Allergies Home Medications Medication Instructions Recorded Confirmed Type Aspirin 325 mg PO DAILY 08/14/17 09/11/21 History Benazepril HCl [Lotensin] 20 mg PO DAILY 08/14/17 09/11/21 History Escitalopram [Lexapro] 5 mg PO DAILY 01/25/19 09/11/21 History ALPRAZolam [Xanax] 0.25 mg PO BID 09/11/21 09/11/21 History Apixaban [Eliquis] 5 mg PO BID 09/11/21 09/11/21 History Atorvastatin [Lipitor] 80 mg PO HS 09/11/21 09/11/21 History Carvedilol [Coreg] 12.5 mg PO BID 09/11/21 09/11/21 History Insulin Detemir (Levemir) [Levemir] 5 unit SQ HS 09/11/21 09/11/21 History Insulin NPH Hum/Reg Insulin Hm See Protocol SQ AC-TID 09/11/21 09/11/21 History [humuLIN 70/30 Kwikpen] Allergies Allergy/AdvReac Type Severity Reaction Status Date / Time codeine Allergy Rash/Hives Verified 09/11/21 18:36 Surgical - Exam Vital Signs Temp Pulse Resp BP Pulse Ox 98 F 61 18 169/88 97 09/11/21 17:25 09/11/21 17:25 09/11/21 17:25 09/11/21 17:25 09/11/21 17:25 General appearance: The patient is alert, oriented, appears in no acute distress. HET: Head is normocephalic and atraumatic. Pupils are equal and reactive. Neck: Supple without lymphadenopathy. Trachea midline. Heart: S1 S2. Regular rate and rhythm. Lungs: Equal air entry, clear to auscultation.. Abdomen: Soft, nontender, nondistended. Extremities: Normal skin color and turgor. No cyanosis, rash, ulceration, clubbing, or edema. Radial pulses +2 bilaterally. Palpable bilateral femoral pulses, dorsalis pedis +1 on right foot, +2 left foot. Right lower extremity with PT and DP Doppler signal. Good capillary refill and warm to the touch. Patient is able to wiggle her toes, move lower extremities without any difficulty has good strength and tone and good sensation. Neurological: No focal deficits. Strength and sensation are grossly intact. Results - Labs 09/11/21 18:03 09/12/21 05:23 Abnormal Lab Results - Last 24 Hours (Table) 09/11/21 09/11/21 09/11/21 Range/Units 17:40 18:03 18:03 MCV 100.6 H (80.0-100.0) fL BUN 22 H (7-17) mg/dL Glucose 35 L* (74-99) mg/dL POC Glucose (mg/dL) 39 L (75-99) mg/dL 09/11/21 09/11/21 09/11/21 Range/Units 18:11 18:41 20:34 MCV (80.0-100.0) fL BUN (7-17) mg/dL Glucose (74-99) mg/dL POC Glucose (mg/dL) 255 H 46 L 114 H (75-99) mg/dL 09/11/21 09/11/21 09/12/21 Range/Units 21:44 23:38 02:16 MCV (80.0-100.0) fL BUN (7-17) mg/dL Glucose (74-99) mg/dL POC Glucose (mg/dL) 120 H 124 H 177 H (75-99) mg/dL 09/12/21 09/12/21 Range/Units 04:18 05:23 MCV (80.0-100.0) fL BUN (7-17) mg/dL Glucose 112 H (74-99) mg/dL POC Glucose (mg/dL) 137 H (75-99) mg/dL Diabetes panel 09/11/21 09/12/21 Range/Units 18:03 05:23 Sodium 140 140 (137-145) mmol/L Potassium 3.6 3.7 (3.5-5.1) mmol/L Chloride 103 107 (98-107) mmol/L Carbon Dioxide 25 23 (22-30) mmol/L BUN 22 H 16 (7-17) mg/dL Creatinine 0.96 0.85 (0.52-1.04) mg/dL Glucose 35 L* 112 H (74-99) mg/dL Calcium 9.6 9.1 (8.4-10.2) mg/dL AST 31 (14-36) U/L ALT 18 (4-34) U/L Alkaline Phosphatase 66 (38-126) U/L Total Protein 7.4 (6.3-8.2) g/dL Albumin 4.1 (3.5-5.0) g/dL Calcium panel 09/11/21 09/12/21 Range/Units 18:03 05:23 Calcium 9.6 9.1 (8.4-10.2) mg/dL Albumin 4.1 (3.5-5.0) g/dL Pituitary panel 09/11/21 09/12/21 Range/Units 18:03 05:23 Sodium 140 140 (137-145) mmol/L Potassium 3.6 3.7 (3.5-5.1) mmol/L Chloride 103 107 (98-107) mmol/L Carbon Dioxide 25 23 (22-30) mmol/L BUN 22 H 16 (7-17) mg/dL Creatinine 0.96 0.85 (0.52-1.04) mg/dL Glucose 35 L* 112 H (74-99) mg/dL Calcium 9.6 9.1 (8.4-10.2) mg/dL Adrenal panel 09/11/21 09/12/21 Range/Units 18:03 05:23 Sodium 140 140 (137-145) mmol/L Potassium 3.6 3.7 (3.5-5.1) mmol/L Chloride 103 107 (98-107) mmol/L Carbon Dioxide 25 23 (22-30) mmol/L BUN 22 H 16 (7-17) mg/dL Creatinine 0.96 0.85 (0.52-1.04) mg/dL Glucose 35 L* 112 H (74-99) mg/dL Calcium 9.6 9.1 (8.4-10.2) mg/dL Total Bilirubin 1.0 (0.2-1.3) mg/dL AST 31 (14-36) U/L ALT 18 (4-34) U/L Alkaline Phosphatase 66 (38-126) U/L Total Protein 7.4 (6.3-8.2) g/dL Albumin 4.1 (3.5-5.0) g/dL - Imaging Comments: CT brain and CT angiogram of chest abdomen pelvis with runoffs reviewed Assessment and Plan Assessment: 1. Right lower extremity weakness, status post multiple CVA/TIA per patient 2. Chronic peripheral vascular disease 3. Dizziness 4. Hypoglycemia 5. Recent intracranial aneurysm, status post coiling Plan: 1. Continue Eliquis, aspirin, and Lipitor 2. There may be some degree of chronic peripheral vascular disease, however right lower extremity weakness likely due to previous CVA/TIA. 3. No indication for any acute vascular surgical intervention. Patient may follow-up as an outpatient with vascular surgery. At that time can consider arterial duplex study. Patient is stable for discharge from a vascular surgical standpoint. Thank you for this kind referral and the opportunity to participate in the care of your patient. The impression and plan of care has been dictated as directed. Dr. Houser I performed a history and examination of this patient, discussed the same with the dictator. I agree with the dictator's note ,documented as a scribe. Any additional findings or plans will be noted.
[2021-09-12 14:36] LABS: Glucose,Whole Blood 248 mg/dL (75-99)
[2021-09-12 17:19] LABS: Glucose,Whole Blood 175 mg/dL (75-99)
[2021-09-12 19:00] LABS: Glucose,Whole Blood 222 mg/dL (75-99)
[2021-09-12 20:27] LABS: Glucose,Whole Blood 233 mg/dL (75-99)
[2021-09-12] MEDS ORDERED: ATORVASTATIN 80 MG TAB PO SCH (21:00)
[2021-09-13] MEDS: SODIUM CHLORIDE 0.9% 1,000 ML IV SCH (00:35)
[2021-09-13 00:36] LABS: Glucose,Whole Blood 153 mg/dL (75-99)
[2021-09-13] MEDS: INSULIN ASPART (NovoLOG) 100 UNIT/ML VIAL SQ SCH ×4 (00:37→13:58)
[2021-09-13 02:53] LABS: Glucose,Whole Blood 148 mg/dL (75-99)
[2021-09-13 07:22] LABS: Glucose,Whole Blood 149 mg/dL (75-99)
[2021-09-13] MEDS: APIXABAN 5 MG TAB PO SCH (08:35)
[2021-09-13] MEDS: ASPIRIN 325 MG TAB PO SCH (08:35)
[2021-09-13] MEDS: ESCITALOPRAM 5 MG TAB PO SCH (08:35)
[2021-09-13] MEDS: carvediloL 12.5 MG TAB PO SCH (08:35)
[2021-09-13 12:17] LABS: Glucose,Whole Blood 188 mg/dL (75-99)
--- NOTE | 2021-09-13 12:55 | P.PN ---
Subjective Progress Note Date: 09/13/21 Patient seen and examined sitting up in bed. She denies any pain to bilateral lower extremities. States dizziness has improved. She's been up and ambulating. She had a arterial duplex yesterday ordered by primary medicine team with LINUS in the right 0.96 and 1.29. Objective - Vital Signs Vital signs: Vital Signs Temp 98.4 F 09/13/21 07:00 Pulse 86 09/13/21 07:00 Resp 22 09/13/21 07:00 BP 182/80 09/13/21 07:00 Pulse Ox 96 09/13/21 07:00 Intake & Output 09/12/21 09/13/21 09/13/21 18:59 06:59 18:59 Intake Total 177 Balance 177 Weight 80.739 kg Intake: Oral 177 Other: # Voids 2 1 1 - Exam General appearance: The patient is alert, oriented, in no acute distress. HET: Head is normocephalic and atraumatic. Pupils are equal and reactive. Neck: Supple without lymphadenopathy. Trachea midline. Extremities: Normal skin color and turgor. No cyanosis, rash, ulceration, clubbing, or edema. Neurological: No focal deficits. Strength and sensation are grossly intact. - Labs CBC & Chem 7: 09/11/21 18:03 09/12/21 05:23 Labs: Abnormal Lab Results - Last 24 Hours (Table) 09/12/21 09/12/21 09/12/21 Range/Units 05:23 10:23 12:12 POC Glucose (mg/dL) 152 H 204 H (75-99) mg/dL Hemoglobin A1c 7.1 H (4.0-6.0) % 09/12/21 09/12/21 09/12/21 Range/Units 12:30 14:34 17:18 POC Glucose (mg/dL) 186 H 248 H 175 H (75-99) mg/dL Hemoglobin A1c (4.0-6.0) % 09/12/21 09/12/21 09/13/21 Range/Units 18:59 20:26 00:33 POC Glucose (mg/dL) 222 H 233 H 153 H (75-99) mg/dL Hemoglobin A1c (4.0-6.0) % 09/13/21 09/13/21 Range/Units 02:48 07:08 POC Glucose (mg/dL) 148 H 149 H (75-99) mg/dL Hemoglobin A1c (4.0-6.0) % Assessment and Plan Assessment: 1. Right lower extremity weakness, status post multiple CVA/TIA per patient 2. Chronic peripheral vascular disease 3. Dizziness 4. Hypoglycemia 5. Recent intracranial aneurysm, status post coiling Plan: 1. Continue Eliquis, aspirin, and Lipitor 2. There may be some degree of chronic peripheral vascular disease, however right lower extremity weakness likely due to previous CVA/TIA. 3. Arterial duplex reviewed. No indication for any acute vascular surgical intervention. Patient may follow-up as an outpatient with vascular surgery. Patient is stable for discharge from a vascular surgical standpoint. Thank you for this kind referral and the opportunity to participate in the care of your patient. The impression and plan of care has been dictated as directed. Dr. Wiggins I performed a history and examination of this patient, discussed the same with the dictator. I agree with the dictator's note ,documented as a scribe. Any additional findings or plans will be noted.
[2021-09-13 14:59] VITALS: BP 163/76; PULSE 59; RESP 16; TEMP 98.2
--- NOTE | 2021-09-13 17:17 | P.DS ---
<Shay Larkin - Last Filed: 09/13/21 17:17> Providers Expected date of discharge: 09/13/21 Hospital Course: Discharge Diagnosis: Dizziness, may be secondary to hypoglycemia versus recent CVAs, improved Right lower extremity paresthesias with diminished flow on CT angiogram Hypoglycemia in a patient with insulin-dependent diabetes mellitus with hemoglobin A1c of 7.1% Hypertension Hyperlipidemia Intracerebral aneurysm status post coiling History of CVA with left-sided deficits in July 2021 Hospital Course: Patient is a very pleasant 80-year-old female with a past medical history of insulin-dependent diabetes mellitus, hypertension, hyperlipidemia, and recently diagnosed with intracerebral aneurysms status post coiling followed by subsequent CVA with left sided deficits in July 2021. Patient remains on anticoagulation with Eliquis. She states she was discharged home from [facility] after CVA and was receiving physical therapy twice a week. Patient reports she was improving with the physical therapy but over the past month she has developed increased weakness, dizziness, issues with balance and coordination as well as difficulties with walking. Pt states that she is having difficulties and weakness in her right leg accompanied by numbness in her right foot. She was seen and fully evaluated in the emergency department. she was found to have significant hypoglycemia with blood glucose of 35. EKG was completed revealing normal sinus rhythm at [address]She [address] brain which revealed mild atrophy with dense metal artifact secondary to aneurysm coils at the left proximal middle cerebral artery with no acute intracranial abnormality. CTA chest and abdomen with runoffs negative for PE and aneurysms, but revealing atherosclerotic vascular disease with concerns of occlusion with no evidence of any significant arterial flow seen below the main tibial artery and the right ankle and calf and limited distal arterial flow in the left posterior tibial artery at the ankle. Vascular surgery was consulted. Patient started on D5 infusion for hypoglycemia. She was admitted under our services with consult to vascular surgery. Insulin being discontinued at this time. Patient monitored throughout 2 day hospitalization. Blood glucose levels stabilized since initial hypoglycemic episode. Hemoglobin A1c 7.1%. We will resume long-acting Levemir and discontinue NPH. Patient underwent arterial duplex, this was evaluated by vascular surgery stating no indication for acute vascular surgical interventions recommending patient follow-up outpatient 2 weeks. Patient underwent evaluation by PT/OT recommending home with home care as patient's condition improved significantly over 48 hour hospital stay. Had long discussion with patient and patient's daughter Vinicio regarding discharge recommendations patient's daughters will take turns staying with their mother at this time. Blood glucose levels to be monitored closely and documented to take with them upon posthospitalization follow-up with PCP. Also discussed risks of anticoagulant use and falls, patient's daughter stated she plans on following up with [facility] attendant to further discuss risks of anticogulant use vs risks of stroke and blood clots if they decide to stop anticoagulants. Pt is medically stable at this time and is being discharged home with daughters and [facility]. Physical exam: Vital signs reviewed and stable. General: Nontoxic, no distress and appears stated age. Derm: Skin warm and dry, normal coloration for ethnicity. Head: Atraumatic, normocephalic and symmetric. Eyes: EOMs intact, no lid lag, and anicteric sclera Mouth: no lip lesions, mucus membranes moist Cardiovascular: regular rate and rhythm with normal S1S2, no murmur, positive posterior tibial pulses bilaterally, and cap refill < 2 seconds. Lungs: Respirations even, regular, and unlabored on room air. Lungs CTA bilaterally, no rhonchi, no rales, no wheezing, and no accessory muscle usage. Abdominal: soft, nontender to palpation, no guarding, no appreciable organomegaly Ext: ROM intact. No gross muscle atrophy, no edema, no contractures, posterior tibial pulses palpated bilaterally. Neuro: Speech clear, face symmetrical and CN II-XII grossly intact with no noted focal neuro deficits Psych: Alert and oriented to person, place, time, and situation. Appropriate and pleasant affect. A total of 45 minutes of time were spent preparing this complex discharge summary. Assessment: I reviewed the documentation as provided by the LUZ MARIA above, who is the original author of this note. I agree with the documented assessment and plan, with the following changes: None Patient Condition at Discharge: Stable Plan - Discharge Summary Discharge Rx Participant: No New Discharge Prescriptions: Continue Benazepril HCl [Lotensin] 20 mg PO DAILY Aspirin 325 mg PO DAILY Escitalopram [Lexapro] 5 mg PO DAILY Carvedilol [Coreg] 12.5 mg PO BID Apixaban [Eliquis] 5 mg PO BID ALPRAZolam [Xanax] 0.25 mg PO BID Atorvastatin [Lipitor] 80 mg PO HS Insulin Detemir (Levemir) [Levemir] 5 unit SQ HS Discontinued Insulin NPH Hum/Reg Insulin Hm [humuLIN 70/30 Kwikpen] See Protocol SQ AC-TID Discharge Medication List Aspirin 325 mg PO DAILY 08/14/17 [History] Benazepril HCl [Lotensin] 20 mg PO DAILY 08/14/17 [History] Escitalopram [Lexapro] 5 mg PO DAILY 01/25/19 [History] ALPRAZolam [Xanax] 0.25 mg PO BID 09/11/21 [History] Apixaban [Eliquis] 5 mg PO BID 09/11/21 [History] Atorvastatin [Lipitor] 80 mg PO HS 09/11/21 [History] Carvedilol [Coreg] 12.5 mg PO BID 09/11/21 [History] Insulin Detemir (Levemir) [Levemir] 5 unit SQ HS 09/11/21 [History] Follow up Appointment(s)/Referral(s): [facility] [NON-STAFF] - As Needed (Supplier of walker) Octavia Houser DO [STAFF PHYSICIAN] - 2 Weeks [facility], [NON-STAFF] - 1-2 Days Mesfin Myers MD [Primary Care Provider] - 1-2 days Patient Instructions/Handouts: Hypoglycemia in a Person with Diabetes (GEN), Peripheral Vascular Disease (GEN) Activity/Diet/Wound Care/Special Instructions: Activity: As tolerated. Take breaks as needed. Diet: Heart healthy and carb consistent diet. Avoid salts, or foods with hidden salts such as canned or boxed foods and frozen dinners. Extra salt makes your heart work harder and traps the fluid in your body for longer. Special Instructions: Take all of your medications as directed and remember to keep all of your doctor's appointments and follow-up as needed. At this time we are discontinuing your Humulin 70/30 Kwicikpen secondary to recurrent reports of hypoglycemia. Your Hgb A1C is 7%. We will continue your Levemir and strongly advise for you to monitor your blood glucose levels 3 times daily and document this in a journal to bring with you to your next doctors appointment as you may need to slowly be placed back on short/intermediate acting insulin or have long acting increased. You will need to follow up with your PCP in the next 2-3 days. Your also on an anticoagulant/blood thinner so it is of utmost importance to remove all trip hazards from your home to prevent any unnecessary falls or injuries. You are being discharged home with [facility] services. Wishing you a truly blessed, happy, and healthy New Year!!!! Thank you for allowing us to participate in your care, it was truly a pleasure having you for our patient!!! Discharge Disposition: HOME WITH HOME HEALTH SERVICES <JuanAlvarojulien - Last Filed: 09/13/21 17:47> Providers Date of admission: 09/11/21 21:06 Attending physician: Lashawn Mccoy MD Consults: 09/11/21 21:06 Consult Physician Routine Consulting Provider: Brady Wiggins Consult Reason/Comments: peripheral vascular disease Do you want consulting provider notified?: Yes Primary care physician: Mesfin Myers MD
--- NOTE | 2021-09-19 11:14 | P.ARTDOP ---
Arterial Doppler LOWER EXTREMITY ARTERIAL DOPPLER: DATE OF SERVICE: 09/12/2021 Reason for study: Suspect PAD right leg. Doppler waveforms: Multiphasic throughout on the left with mildly blunted waveforms of the digit. Multiphasic down and in occluding the posterior tibial on the right. Dorsalis pedis is atypical and digital is mildly blunted. Pulse volume recording: []. Pressure gradients: Mild below-knee gradient on the right. Ankle-brachial indices: 0.96 on the right and greater than 1 on the left. Toe brachial indices: 0.35 on the right, 0.42 on the left Impression: Major arteries on the left appear normal throughout. They appear normal on the right except the dorsalis pedis. Possible mild distal disease on the right. More significant distal disease less likely with vasospastic phenomenon probably present. Clinical correlation recommended..
== END 2021-09-13 16:41 | disposition home health service (06) ==
LOC: EC 17:19 → 6NMEDSUR 21:06
PROVIDERS: ADMIT Internal Medicine; ATTEND Internal Medicine
DX: R42 Dizziness and giddiness (principal); E11.649 Type 2 diabetes mellitus with hypoglycemia without coma; E11.51 Type 2 diabetes mellitus with diabetic peripheral angiopathy without gangrene; I70.293 Other atherosclerosis of native arteries of extremities, bilateral legs; I10 Essential (primary) hypertension; R53.1 Weakness; E78.5 Hyperlipidemia, unspecified; Z20.822 Contact with and (suspected) exposure to COVID-19; I69.398 Other sequelae of cerebral infarction; I67.1 Cerebral aneurysm, nonruptured; K21.9 Gastro-esophageal reflux disease without esophagitis; E66.3 Overweight; Z68.29 Body mass index [BMI] 29.0-29.9, adult; Z79.4 Long term (current) use of insulin; Z79.82 Long term (current) use of aspirin; Z79.899 Other long term (current) drug therapy; Z79.01 Long term (current) use of anticoagulants; Z88.5 Allergy status to narcotic agent; Z85.3 Personal history of malignant neoplasm of breast; Z71.89 Other specified counseling; Z90.710 Acquired absence of both cervix and uterus; Z98.41 Cataract extraction status, right eye; Z98.42 Cataract extraction status, left eye; Z87.891 Personal history of nicotine dependence; Z96.1 Presence of intraocular lens; Z85.038 Personal history of other malignant neoplasm of large intestine; Z85.118 Personal history of other malignant neoplasm of bronchus and lung; Z90.2 Acquired absence of lung [part of]; Z90.49 Acquired absence of other specified parts of digestive tract; Z83.3 Family history of diabetes mellitus; Z82.49 Family history of ischemic heart disease and other diseases of the circulatory system
CPT/HCPCS: 99291; 96376; 96365; 96366; 36415; 93005; 97162; 97535; 97166; 80053; 80048; 83605; 83735; 85025; 85610; 85730; 83036; 87635; 71045; 93923; 70450; 75635; 71275; G0378 ×3; Q9967

== ENCOUNTER → 2021-10-31 | Outpatient (CLI) | payer MEDICARE ==
--- NOTE | 2021-10-31 22:12 | CT ---
EXAMINATION TYPE: CT abdomen pelvis w con DATE OF EXAM: 10/31/2021 COMPARISON: CT dated 09/11/2021 HISTORY: h/o CA, f/u CT DLP: 894.6 mGycm Automated exposure control for dose reduction was used. TECHNIQUE: Helical acquisition of images was performed from the lung bases through the pelvis. CONTRAST: Performed with Oral Contrast and with IV Contrast, patient injected with 80 mL of Isovue 300. FINDINGS: No definite hepatic focal lesion. Previous cholecystectomy. Dilated CBD, probably representing postch olecystectomy status, stable. Stable tiny posterior splenic cyst, otherwise unremarkable spleen. Atro phic pancreas. Stable thickened left adrenal. Unremarkable right adrenal. Irregular outline of the kidneys, appreciated previously. 7 mm slightly hyperdense lesion at the infe rior aspect of the right kidney, appreciated previously and could represent a hemorrhagic cyst, for c orrelation with ultrasound results. Slightly smaller left kidney with a left upper pole simple renal cyst. Focal cortical hypodense area is seen at the inferior aspect of the left kidney, possibly repre senting an infarct. Delayed excretion of the right kidney is appreciated in the delayed images. No hy dronephrosis bilaterally. Extensive arterial atherosclerotic calcifications with infrarenal abdominal aortic ectasia measuring up to 2.7 cm. Perineal prolapse. The urinary bladder is not distended. No gross uterine or adnexal ma ss. Unremarkable stomach and duodenum. No evidence of bowel obstruction. Unremarkable colonic anastom osis in the pelvis. Mild presacral soft tissue thickening, possibly representing chronic postoperativ e scarring, appreciated previously. Scattered uncomplicated colonic diverticulosis with fecal loading of the colon. No suspicious lymphadenopathy or sizable ascites. Atrophy of the anterior abdominal wall muscles with fat herniation between the layers of the muscles. Right lower quadrant anterior abdominal wall skin thickening and underlying subcutaneous fat infiltration by soft tissue density, possibly inflammatory /infectious however other infiltrative processes cannot be excluded, please correlate clinically. No suspicious lung base lesion. Cardiomegaly. Coronary arterial calcifications. Markedly degenerative ch anges of the lower thoracic and lower lumbar spine with anterolisthesis of L4 over L5. No gross aggre ssive bone lesion. IMPRESSION: 1. No obvious suspicious lesion or metastatic disease seen in the abdomen or the pelvis. 2. Right lower quadrant anterior abdominal wall focal skin thickening and underlying soft tissue infi ltration in the subcutaneous fat which could be inflammatory/infectious in etiology however other inf iltrative process cannot be excluded, please correlate clinically. 3. Questionable left renal cortical small infarct. Other multiple incidental findings and recommendat ions as detailed above.
--- NOTE | 2021-10-31 22:41 | CT ---
EXAMINATION TYPE: CT chest wo con DATE OF EXAM: 10/31/2021 INDICATION: cough, h/o lung CA, f/u CT DLP: 894.6 mGy.cm Automated Exposure Control for Dose Reduction was Utilized. TECHNIQUE AND CONTRAST: Multiplanar CT scan of the chest without IV contrast administration. COMPARISON: CT dated 09/11/2021 FINDINGS: Suspected partial resection of the right middle/lower lobes, please correlate with previous operative report. Mild bronchial impaction is seen at the residual right middle/lower lobe bronchi. Minimal sc ar is also seen in the right lower lung zone posteriorly. Elongated scar is also seen at the anterola teral aspect of the left upper lobe/lingula, with tiny traction bronchiectasis, stable compared to th e previous recent CT scan. 8 mm elongated density seen in the posterior aspect of the left lower lobe, image #34, series 4, subo ptimally visualized previously. 3 mm nodule is seen at the lateral aspect of the left lower lobe (nayan ge 26, series 4), stable. Groundglass opacity seen at the left upper lobe measuring 10 mm (image #16, series 4), appreciated previously. Patent trachea and main bronchi. No pleural or pericardial effusion. Cardiomegaly, please correlate w ith echocardiographic results. Scattered arterial atherosclerotic calcifications including coronary a rterial calcifications. 10 mm right superior paratracheal lymph node, appreciated also on the previou s CT scan. No other pathologically enlarged lymph nodes in the chest. CT scan of the abdomen is dictated separat rena. Previous left mastectomy. The pulmonary trunk measures 3.2 cm suggestive of pulmonary hypertensi on. Degenerative changes of the thoracic spine. IMPRESSION: Postsurgical changes and scattered indeterminate lung nodules as detailed above, nonspecific. Compari son was made to a CT performed about month ago with no more previous imaging available for comparison . Recommend correlation with previous unavailable scans. Alternatively, a short-term follow-up CT sca n in 2-3 months or further PET scan should be considered for reassessment of the subtle lung lesions as well as the right superior paratracheal lymph node. Other incidental findings as described above.
== END | disposition home or self-care (01) ==
LOC: RADCTMAIN 14:36
PROVIDERS: ATTEND Family Medicine
DX: Z08 Encounter for follow-up examination after completed treatment for malignant neoplasm (principal); R10.9 Unspecified abdominal pain; R05.9 Cough, unspecified; Z85.110 Personal history of malignant carcinoid tumor of bronchus and lung
CPT/HCPCS: 82565; 84520; 71250; 74177; 36415; Q9967

== ENCOUNTER → 2021-11-16 | Outpatient (CLI) | payer MEDICARE ==
--- NOTE | 2021-11-16 22:44 | PE ---
EXAMINATION TYPE: PET CT fusion skull to thigh DATE OF EXAM: 11/16/2021 COMPARISON: Most recent CT October 31, 2021 HISTORY: Lung cancer newly diagnosed. Left-sided breast cancer 20 years ago. TECHNIQUE: Following the intravenous administration of 9.99 mCi of F-18 FDG, whole body images are p erformed from the skull base to the midthigh. Images are reviewed on the computer in the coronal, ax ial, and sagittal planes. Reconstructed rotating images are created on independent workstation and r eviewed on the computer. A localization and attenuation correction CT is performed in conjunction w ith the PET scan. Blood glucose level equals 63. SCAN: Initial Scan FINDINGS: SKULL BASE AND NECK: No areas of abnormal hypermetabolic uptake. CHEST, MEDIASTINUM, AND HILAR REGION: Mild underlying emphysematous change. Posttreatment change of r ight lung redemonstrated. Left breast surgically absent. No areas of abnormal hypermetabolic uptake i ncluding stable elongated 7 x 5 mm left lower lobe nodule axial image 93 and subcentimeter elongated right paratracheal lymph node axial image 64. ABDOMEN AND PELVIS: Bilateral adrenal low dense thickening without hypermetabolic uptake favors hyper plasia. Normal excretion. Abnormal Soft tissue right lower quadrant anterior abdominal wall axial nayan ge 192 is ametabolic. Asymmetric excretion along course of the right ureter. Mild nonspecific bowel u ptake in the pelvis. No definitive abnormal hypermetabolic uptake. OSSEOUS STRUCTURES: No abnormal hypermetabolic uptake. OTHER CT: Intracranial aneurysm clip is noted. Moderate calcified plaque bilateral carotid bulb level . Cardiomegaly with severe three-vessel coronary artery calcification. Calcification along the course o f the mitral valve. Cholecystectomy clips. Surgical changes sigmoid rectal colon. S-shaped scoliosis. IMPRESSION: No areas of abnormal hypermetabolic uptake to suggest active residual or metastatic malig tk.
== END | disposition home or self-care (01) ==
LOC: RADPETMAIN 08:05
PROVIDERS: ATTEND Family Medicine
DX: Z08 Encounter for follow-up examination after completed treatment for malignant neoplasm (principal); C34.90 Malignant neoplasm of unspecified part of unspecified bronchus or lung; Z85.3 Personal history of malignant neoplasm of breast; Z85.038 Personal history of other malignant neoplasm of large intestine
CPT/HCPCS: 78815; A9552

== ENCOUNTER 2023-05-12 12:52 | Observation (INO) | payer MEDICARE ==
--- NOTE | 2023-05-12 13:03 | ED ---
General Adult HPI - General Chief complaint: Chest Pain Stated complaint: chest pain SOB Time Seen by Provider: 05/12/23 12:55 Source: patient, RN notes reviewed, old records reviewed Mode of arrival: ambulatory Limitations: no limitations - History of Present Illness Initial comments: This is an 82-year-old female presents emergency Department complaining that 3 days ago she started having shortness of breath and then yesterday she started having left-sided chest pain occasionally. Patient states as a heaviness sensation. Patient also states she has quite a bit of a cough but no sputum production. Patient denies any fever chills. Patient denies any back pain. Patient denies any abdominal pain patient denies nausea vomiting diarrhea. Patient denies any diaphoretic episodes. Patient states she's not had a heart attack in the past she has had strokes. - Related Data Home Medications Medication Instructions Recorded Confirmed Aspirin 81 mg PO DAILY 08/14/17 01/14/22 Benazepril HCl [Lotensin] 20 mg PO DAILY 08/14/17 01/14/22 Escitalopram [Lexapro] 5 mg PO DAILY 01/25/19 01/14/22 ALPRAZolam [Xanax] 1 mg PO HS PRN 09/11/21 01/14/22 Apixaban [Eliquis] 5 mg PO BID 09/11/21 01/11/22 Atorvastatin [Lipitor] 80 mg PO HS 09/11/21 01/14/22 Insulin Glargine,Hum.rec.anlog 30 unit SQ AC-SUPPER 01/11/22 01/14/22 [Lantus Solostar Pen] Isosorbide Mononitrate [Isosorbide 30 mg PO DAILY 01/11/22 01/14/22 Mononitrate ER] Allergies Allergy/AdvReac Type Severity Reaction Status Date / Time codeine Allergy Rash/Hives Verified 05/12/23 12:56 Review of Systems ROS Statement: Those systems with pertinent positive or pertinent negative responses have been documented in the HPI. ROS Other: All systems not noted in ROS Statement are negative. Past Medical History Past Medical History: Cancer, CVA/TIA, Diabetes Mellitus, Deep Vein Thrombosis (DVT), GERD/Reflux, Hyperlipidemia, Hypertension Additional Past Medical History / Comment(s): lung ,colon and lt breast cancer.constipation, SOB w/exertion, chest pressure for a few months, ?DVT after childbirth 59 yrs. ago, TIA's-left hand is numb most of time, most recent TIA couple weeks ago-was seen @[facility] History of Any Multi-Drug Resistant Organisms: None Reported Past Surgical History: Bowel Resection, Breast Surgery, Cholecystectomy, Tubal Ligation Additional Past Surgical History / Comment(s): cataracts-lens implants, stones in salivary gland removed, "i had cancer twice in lt breast/lt breast bx/mastectomy. lt lower lobectomy d/t ca. had surg. for brain aneurysm in Nov. @[facility], loop recorder insertion Past Anesthesia/Blood Transfusion Reactions: Previous Problems w/ Anesthesia Additional Past Anesthesia/Blood Transfusion Reaction / Comment(s): always has itching after anesthesia Type of Cardiac Device: Loop Past Psychological History: No Psychological Hx Reported Smoking Status: Former smoker Past Alcohol Use History: None Reported Past Drug Use History: None Reported - Past Family History Mother Family Medical History: Coronary Artery Disease (CAD), Diabetes Mellitus Additional Family Medical History / Comment(s): cabg Father Family Medical History: Diabetes Mellitus, Myocardial Infarction ([place]) Additional Family Medical History / Comment(s): Father of a [place] at the age of 56yrs. Brother(s) Additional Family Medical History / Comment(s): dm-heart problems General Exam - General Exam Comments Initial Comments: GENERAL: Patient is well-developed and well-nourished. Patient is nontoxic and well- hydrated and is in mild distress. ENT: Neck is soft and supple. No significant lymphadenopathy is noted. Oropharynx is clear. Moist mucous membranes. Neck has full range of motion without eliciting any pain. EYES: The sclera were anicteric and conjunctiva were pink and moist. Extraocular movements were intact and pupils were equal round and reactive to light. Eyelids were unremarkable. PULMONARY: Unlabored respirations. Good breath sounds bilaterally. No audible rales rhonchi or wheezing was noted. CARDIOVASCULAR: There is a regular rate and rhythm without any murmurs gallops or rubs. ABDOMEN: Soft and nontender with normal bowel sounds. SKIN: Skin is clear with no lesions or rashes and otherwise unremarkable. NEUROLOGIC: Patient is alert and oriented x3. Cranial nerves II through XII are grossly intact. Motor and sensory are also intact. Normal speech, volume and content. Symmetrical smile. MUSCULOSKELETAL: Normal extremities with adequate strength and full range of motion. LYMPHATICS: No significant lymphadenopathy is noted PSYCHIATRIC: Normal psychiatric evaluation. Limitations: no limitations Course Vital Signs 05/12/23 12:54 Temperature 98.4 F Pulse Rate 118 H Respiratory 20 Rate Blood Pressure 135/81 O2 Sat by Pulse 99 Oximetry Medical Decision Making - Medical Decision Making EKG is interpreted by myself. EKG shows a sinus rhythm at 94 bpm HI interval 246 QRS is 106 QT interval 3:30 QTC is 390. Patient's EKG also has occasional PAC Was pt. sent in by a medical professional or institution (, PA, ABAP DEVELOPER, urgent care, hospital, or jail...) When possible be specific @ -[No] Did you speak to anyone other than the patient for history (EMS, parent, family, police, friend...)? What history was obtained from this source @ -[No] Did you review nursing and triage notes (agree or disagree)? Why? @ -[I reviewed and agree with nursing and triage notes] Were old charts reviewed (outside hosp., previous admission, EMS record, old EKG, old radiological studies, urgent care reports/EKG's, jail records)? Report findings @ -Prior to departure some prior laboratory this patient Differential Diagnosis (chest pain, altered mental status, abdominal pain women, abdominal pain men, vaginal bleeding, weakness, fever, dyspnea, syncope, headache, dizziness, GI bleed, back pain, seizure, CVA, palpatations, mental health, musculoskeletal)? @ -Differential Chest Pain: Stable Angina, Unstable Angina, STEMI, NSTEMI Aortic Dissection, Pneumothorax, Musculoskeletal, Esophageal Spasm GERD, Cholecystitis, Pancreatitis, Zoster, this is not meant to be an all-inclusive list. EKG interpreted by me (3pts min.). @ -[As above] X-rays interpreted by me (1pt min.). @ -Chest x-ray shows elevated right diaphragm otherwise no acute changes CT interpreted by me (1pt min.). @ -[None done] U/S interpreted by me (1pt. min.). @ -[None done] What testing was considered but not performed or refused? (CT, X-rays, U/S, labs)? Why? @ -[None] What meds were considered but not given or refused? Why? @ -[None] Did you discuss the management of the patient with other professionals (professionals i.e. DrBoyd, PA, ABAP DEVELOPER, lab, RT, psych nurse, social science research assistant, clothing supervisor, teacher, complaint evaluation officer, case worker)? Give summary @ -Poke with Dr. Bacon she agreed to admit the patient Was smoking cessation discussed for >3mins.? @ -[No] Was critical care preformed (if so, how long)? @ -[No] Were there social determinants of health that impacted care today? How? (Homelessness, low income, unemployed, alcoholism, drug addiction, transportation, low edu. Level, literacy, decrease access to med. care, correction, rehab)? @ -[No] Was there de-escalation of care discussed even if they declined (Discuss DNR or withdrawal of care, Hospice)? DNR status @ -[No] What co-morbidities impacted this encounter? (DM, HTN, Smoking, COPD, CAD, Cancer, CVA, ARF, Chemo, Hep., AIDS, mental health diagnosis, sleep apnea, morbid obesity)? @ -[None] Was patient admitted / discharged? Hospital course, mention meds given and route, prescriptions, significant lab abnormalities, going to OR and other p ertinent info. @ -Patient received aspirin and Nitropaste while in the emergency department and patient was very anxious so patient also got 0.5 of Ativan Undiagnosed new problem with uncertain prognosis? @ -[No] Drug Therapy requiring intensive monitoring for toxicity (Heparin, Nitro, Insulin, Cardizem)? @ -[No] Were any procedures done? @ -[No] Diagnosis/symptom? @ -Chest pain Acute, or Chronic, or Acute on Chronic? @ -Acute Uncomplicated (without systemic symptoms) or Complicated (systemic symptoms)? @ -Complicated Side effects of treatment? @ -[No] Exacerbation, Progression, or Severe Exacerbation? @ -[No] Poses a threat to life or bodily function? How? (Chest pain, [place], [place], pneumonia, PE, COPD, DKA, ARF, appy, cholecystitis, CVA, Diverticulitis, Homicidal, Suicidal, threat to staff... and all critical care pts) @ -Yes is completely done [place] and can lead to end organ dysfunction - Lab Data Result diagrams: 05/12/23 13:20 05/12/23 13:20 Lab Results 05/12/23 05/12/23 05/12/23 Range/Units 13:20 13:20 13:20 WBC 5.0 (3.8-10.6) k/uL RBC 4.10 (3.80-5.40) m/uL Hgb 13.3 (11.4-16.0) gm/dL Hct 39.4 (34.0-46.0) % MCV 96.2 (80.0-100.0) fL MCH 32.5 (25.0-35.0) pg MCHC 33.8 (31.0-37.0) g/dL RDW 14.2 (11.5-15.5) % Plt Count 196 (150-450) k/uL MPV 8.7 Neutrophils % 69 % Lymphocytes % 18 % Monocytes % 7 % Eosinophils % 2 % Basophils % 0 % Neutrophils # 3.4 (1.3-7.7) k/uL Lymphocytes # 0.9 L (1.0-4.8) k/uL Monocytes # 0.4 (0-1.0) k/uL Eosinophils # 0.1 (0-0.7) k/uL Basophils # 0.0 (0-0.2) k/uL PT 11.6 (9.0-12.0) sec INR 1.1 (<1.2) APTT 25.4 (22.0-30.0) sec Sodium 136 L (137-145) mmol/L Potassium 4.7 (3.5-5.1) mmol/L Chloride 103 (98-107) mmol/L Carbon Dioxide 21 L (22-30) mmol/L Anion Gap 12 mmol/L BUN 25 H (7-17) mg/dL Creatinine 1.05 H (0.52-1.04) mg/dL Est GFR (CKD-EPI)AfAm 58 (>60 ml/min/1.73 sqM) Est GFR (CKD-EPI)NonAf 50 (>60 ml/min/1.73 sqM) Glucose 222 H (74-99) mg/dL Calcium 9.5 (8.4-10.2) mg/dL Magnesium 1.7 (1.6-2.3) mg/dL Total Bilirubin 0.9 (0.2-1.3) mg/dL AST 25 (14-36) U/L ALT 17 (4-34) U/L Alkaline Phosphatase 85 (38-126) U/L Troponin I (0.000-0.034) ng/mL Total Protein 8.2 (6.3-8.2) g/dL Albumin 4.5 (3.5-5.0) g/dL Influenza Type A (PCR) (Not Detectd) Influenza Type B (PCR) (Not Detectd) RSV (PCR) (Not Detectd) SARS-CoV-2 (PCR) (Not Detectd) 05/12/23 05/12/23 Range/Units 13:20 14:01 WBC (3.8-10.6) k/uL RBC (3.80-5.40) m/uL Hgb (11.4-16.0) gm/dL Hct (34.0-46.0) % MCV (80.0-100.0) fL MCH (25.0-35.0) pg MCHC (31.0-37.0) g/dL RDW (11.5-15.5) % Plt Count (150-450) k/uL MPV Neutrophils % % Lymphocytes % % Monocytes % % Eosinophils % % Basophils % % Neutrophils # (1.3-7.7) k/uL Lymphocytes # (1.0-4.8) k/uL Monocytes # (0-1.0) k/uL Eosinophils # (0-0.7) k/uL Basophils # (0-0.2) k/uL PT (9.0-12.0) sec INR (<1.2) APTT (22.0-30.0) sec Sodium (137-145) mmol/L Potassium (3.5-5.1) mmol/L Chloride (98-107) mmol/L Carbon Dioxide (22-30) mmol/L Anion Gap mmol/L BUN (7-17) mg/dL Creatinine (0.52-1.04) mg/dL Est GFR (CKD-EPI)AfAm (>60 ml/min/1.73 sqM) Est GFR (CKD-EPI)NonAf (>60 ml/min/1.73 sqM) Glucose (74-99) mg/dL Calcium (8.4-10.2) mg/dL Magnesium (1.6-2.3) mg/dL Total Bilirubin (0.2-1.3) mg/dL AST (14-36) U/L ALT (4-34) U/L Alkaline Phosphatase (38-126) U/L Troponin I <0.012 (0.000-0.034) ng/mL Total Protein (6.3-8.2) g/dL Albumin (3.5-5.0) g/dL Influenza Type A (PCR) Not Detected (Not Detectd) Influenza Type B (PCR) Not Detected (Not Detectd) RSV (PCR) Not Detected (Not Detectd) SARS-CoV-2 (PCR) Not Detected (Not Detectd) Disposition Clinical Impression: Chest pain Disposition: ADMITTED IP TO THIS HOSP Referrals: Garrett Grier MD [Primary Care Provider] - 1-2 days Time of Disposition: 15:05
[2023-05-12 13:25] LABS: Basophils % (A) 0 %; Eosinophils # (A) 0.1 k/uL (0-0.7); Eosinophils % (A) 2 %; HCT 39.4 % (34.0-46.0); HGB 13.3 gm/dL (11.4-16.0); Lymphocytes # (A) 0.9 k/uL (1.0-4.8); Lymphocytes % (A) 18 %; MCH 32.5 pg (25.0-35.0); MCHC 33.8 g/dL (31.0-37.0); MCV 96.2 fL (80.0-100.0); Mean Platelet Volume 8.7; Monocytes # (A) 0.4 k/uL (0-1.0); Monocytes % (A) 7 %; Neutrophils # (A) 3.4 k/uL (1.3-7.7); Neutrophils % (A) 69 %; Platelet Count 196 k/uL (150-450); RDW 14.2 % (11.5-15.5)
[2023-05-12 13:33] LABS: Potassium 4.7 mmol/L (3.5-5.1)
[2023-05-12 13:34] LABS: ALT 17 U/L (4-34); AST 25 U/L (14-36); African American GFR (CKD) 58 (>60 ml/min/1.73 sqM); Albumin 4.5 g/dL (3.5-5.0); Alkaline Phosphatase 85 U/L (38-126); Anion Gap 12 mmol/L; Blood Urea Nitrogen 25 mg/dL (7-17); Calcium 9.5 mg/dL (8.4-10.2); Carbon Dioxide 21 mmol/L (22-30); Chloride 103 mmol/L (98-107); Glucose 222 mg/dL (74-99); INR 1.1 (<1.2); Magnesium 1.7 mg/dL (1.6-2.3); Non-African American GFR(CKD) 50 (>60 ml/min/1.73 sqM); Partial Thromboplastin Time 25.4 sec (22.0-30.0); Prothrombin Time 11.6 sec (9.0-12.0); Sodium 136 mmol/L (137-145); Total Bilirubin 0.9 mg/dL (0.2-1.3); Total Protein 8.2 g/dL (6.3-8.2)
--- NOTE | 2023-05-12 13:46 | XR ---
EXAMINATION TYPE: XR chest 2V DATE OF EXAM: 05/12/2023 1:37 PM COMPARISON: Chest radiographs from 09/11/2021 TECHNIQUE: XR chest 2V Frontal and lateral views of the chest. CLINICAL INDICATION:Female, 82 years old with history of Chest Pain; FINDINGS: Lungs/Pleura: There is flattening of the diaphragm with increased lucency of the lungs. No evidence o f pneumothorax, pleural effusion or focal consolidation. Pulmonary vascularity: Unremarkable. Heart/mediastinum: Cardiomediastinal silhouette is enlarged and stable. A loop recorder projects over the left thorax over the heart. Musculoskeletal: No acute osseous pathology. IMPRESSION: 1. No acute cardiopulmonary disease/process. 2. COPD. 3. Cardiomegaly.
[2023-05-12] MEDS ORDERED: LORazepam 2 MG/ML INJ IV STA (14:51)
[2023-05-12] MEDS ORDERED: NITROGLYCERIN SL TABS 0.4 MG TAB SUBLINGUAL PRN (15:06)
[2023-05-12] MEDS ORDERED: DEXTROSE 50% SYRINGE 50 ML IVP PRN ×2 (17:31)
--- NOTE | 2023-05-12 17:34 | P.HPIM ---
History of Present Illness H&P Date: 05/12/23 82-year-old female with PMH of anxiety, history of CVA and left-sided residual weakness, history of brain aneurysm, history of right lung cancer post lobectomy, history of loop recorder, CAD, history of colon cancer and breast cancer, diabetes mellitus, hypertension, dyslipidemia presents to the ED for left-sided chest pain and exertional shortness of breath. She reports her chest pain to be pressure-like in nature. Pain does not radiate. Pain is worsened with exertion. Symptoms have been progressively getting worse over the past 2-3 weeks. She also reports syncopal episodes they usually occur with positional change. Her last syncopal episode was one month ago when attempting to get up to use the bathroom in the middle of the night. She has never see medical attention after her syncopal episode. These symptoms have been progressively getting worse which prompted her to come to the ED. In the ED, she was noted to be tachycardic with heart rate in the 110s. Vital signs were otherwise stable. CBC was unremarkable. INR was 1.1. CMP showed sodium 136, bicarb 21, BUN 25, creatinine 1.05, glucose 222. Troponin was less than 0.0122. Magnesium 1.7. Influenza, RSV, COVID-19 negative. Chest x-ray shows right-sided opacity in the lower lobe. EKG shows sinus rhythm with PVCs with nonspecific T-wave abnormalities. Patient is admitted for chest pain and exertional shortness of breath with cardiology on consultation. Gen.: no distress, appears at stated age Derm: warm, dry Head: atraumatic, normocephalic, symmetric Eyes: EOMI, no lid lag, anicteric sclera Cardiovascular: Good distal perfusion in all 4 extremities, normal S1-S2 Lungs: Breathing comfortably, no accessory muscle use. Clear to auscultation bilaterally Ext: no gross muscle atrophy, no edema, no contractures Neuro: Weakened manager intern strength in the left hand otherwise normal. Psych: Alert, oriented, appropriate affect Exertional dyspnea and chest pain Postural lightheadedness Acute kidney injury Diabetes mellitus with hyperglycemia Chronic conditions: anxiety, history of CVA and left-sided residual weakness, history of brain aneurysm, history of right lung cancer post lobectomy, history of loop recorder, CAD, history of colon cancer and breast cancer, diabetes mellitus, hypertension, dyslipidemia Based on my assessment of this patient, this patient meets a high complexity level of care. Patient has an acute diagnosis of exertional chest pain and SOB that poses a threat to life or bodily function. Exertional dyspnea and chest pain: Initial Troponin < 0.012 x 2, ACS ruled out. Telemetry monitoring. Obtain echocardiogram. Consult cardiology. Recent cath 01/2022 shows heavily calcified triple vessel disease. Consider chest CT if cardiac cause ruled out. Postural lightheadedness: Obtain orthostats. PT and OT consult. Acute kidney injury: Hold benazepril. Diabetes mellitus with hyperglycemia: Start Levemir 10 units twice a day. Insulin sliding scale. Accu-Cheks before meals at bedtime. Hypoglycemic precautions. Eliquis for DVT prophylaxis. FULL CODE Patient will need to follow up with her PCP for routine cancer screening given her history of Colon, Breast, Lung CA. I have reviewed the following renewable energy consultant notes: I have reviewed the results of the following tests: CBC, INR, CMP, Trop, Mag, Influenza, RSC, COVID 19. EKG. I have ordered the following tests: Trop. Echo. I have discussed the care of this patient with the following independent historian: Discussed with daughter at bedside. I have independently interpreted the following test below: I have discussed the management of this patient with the following physician: Case discussed with the ED physician. Past Medical History Past Medical History: Cancer, CVA/TIA, Diabetes Mellitus, Deep Vein Thrombosis (DVT), GERD/Reflux, Hyperlipidemia, Hypertension Additional Past Medical History / Comment(s): lung ,colon and lt breast cancer.constipation, SOB w/exertion, chest pressure for a few months, ?DVT after childbirth 59 yrs. ago, TIA's-left hand is numb most of time, most recent TIA couple weeks ago-was seen , brain aneurysm with surgery History of Any Multi-Drug Resistant Organisms: None Reported Past Surgical History: Bowel Resection, Breast Surgery, Cholecystectomy, Tubal Ligation Additional Past Surgical History / Comment(s): cataracts-lens implants, stones in salivary gland removed, "i had cancer twice in lt breast/lt breast bx/mastectomy. lt lower lobectomy d/t ca. had surg, loop recorder insertion Past Anesthesia/Blood Transfusion Reactions: Previous Problems w/ Anesthesia Additional Past Anesthesia/Blood Transfusion Reaction / Comment(s): always has itching after anesthesia Type of Cardiac Device: Loop Past Psychological History: No Psychological Hx Reported Additional Psychological History / Comment(s): Pt resides alone. She is independent. Smoking Status: Former smoker Past Alcohol Use History: None Reported Additional Past Alcohol Use History / Comment(s): Pt started smoking in 1957 and quit in 1980 Past Drug Use History: None Reported - Past Family History Mother Family Medical History: Coronary Artery Disease (CAD), Diabetes Mellitus Additional Family Medical History / Comment(s): cabg Father Family Medical History: Diabetes Mellitus, Myocardial Infarction ([place]) Additional Family Medical History / Comment(s): Father of a [place] at the age of 56yrs. Brother(s) Additional Family Medical History / Comment(s): dm-heart problems Medications and Allergies Home Medications Medication Instructions Recorded Confirmed Type Benazepril HCl [Lotensin] 20 mg PO HS 08/14/17 05/12/23 History Apixaban [Eliquis] 5 mg PO BID 09/11/21 05/12/23 History Atorvastatin [Lipitor] 80 mg PO HS 09/11/21 05/12/23 History Isosorbide Mononitrate [Isosorbide 30 mg PO DAILY 01/11/22 05/12/23 History Mononitrate ER] ALPRAZolam [Xanax] 1 mg PO BID 05/12/23 05/12/23 History Aspirin EC [Ecotrin Low Dose] 81 mg PO DAILY 05/12/23 05/12/23 History Sertraline HCl [Zoloft] 50 mg PO DAILY 05/12/23 05/12/23 History Tirzepatide [Mounjaro] 2.5 mg SQ WE 05/12/23 05/12/23 History Vitamin D3(Unknown Dose) 1 tab PO HS 05/12/23 05/12/23 History Allergies Allergy/AdvReac Type Severity Reaction Status Date / Time codeine Allergy Rash/Hives Verified 05/12/23 17:00 Physical Exam Vitals: Vital Signs Temp Pulse Pulse Resp BP BP Pulse Ox 05/12/23 16:25 97.5 F L 77 16 130/73 95 05/12/23 16:13 97.7 F 76 18 125/65 98 05/12/23 12:54 98.4 F 118 H 20 135/81 99 Intake and Output 05/12/23 05/12/23 05/12/23 06:59 14:59 22:59 Other: Weight 68.039 kg 68.039 kg Results CBC & Chem 7: 05/12/23 13:20 05/12/23 13:20 Labs: Abnormal Lab Results - Last 24 Hours (Table) 05/12/23 05/12/23 Range/Units 13:20 13:20 Lymphocytes # 0.9 L (1.0-4.8) k/uL Sodium 136 L (137-145) mmol/L Carbon Dioxide 21 L (22-30) mmol/L BUN 25 H (7-17) mg/dL Creatinine 1.05 H (0.52-1.04) mg/dL Glucose 222 H (74-99) mg/dL Thrombosis Risk Factor Assmnt - Choose All That Apply Each Risk Factor Represents 3 Points: Age 75 years or older, History of DVT/PE Thrombosis Risk Factor Assessment Total Risk Factor Score: 6 Thrombosis Risk Factor Assessment Level: High Risk
[2023-05-12 18:03] LABS: Glucose,Whole Blood 216 mg/dL (70-110)
[2023-05-12] MEDS: SODIUM CHLORIDE 0.9% 1,000 ML IV SCH (18:22)
[2023-05-12] MEDS: NITROGLYCERIN OINT 1 INCH/GM PACKET TOPICAL SCH (19:48)
[2023-05-12 20:20] LABS: Glucose,Whole Blood 274 mg/dL (70-110)
[2023-05-12] MEDS: APIXABAN 5 MG TAB PO SCH (20:40)
[2023-05-12] MEDS: INSULIN ASPART (NovoLOG) 100 UNIT/ML VIAL SQ SCH (20:40)
[2023-05-12] MEDS: ALPRAZolam 1 MG TAB PO SCH (20:40)
[2023-05-12] MEDS: ATORVASTATIN 80 MG TAB PO SCH (20:40)
[2023-05-12] MEDS: INSULIN DETEMIR (LEVEMIR) 100 UNIT/ML SYR SQ SCH (22:12)
[2023-05-13] MEDS: NITROGLYCERIN OINT 1 INCH/GM PACKET TOPICAL SCH ×4 (00:30→19:59)
[2023-05-13 06:07] LABS: Glucose,Whole Blood 124 mg/dL (70-110)
[2023-05-13] MEDS: INSULIN ASPART (NovoLOG) 100 UNIT/ML VIAL SQ SCH ×4 (06:16→21:24)
[2023-05-13] MEDS ORDERED: ASPIRIN 325 MG TAB PO SCH (09:00)
[2023-05-13] MEDS ORDERED: AMINOPHYLLINE 500 MG/20 ML VIAL IV PRN (09:14)
[2023-05-13] MEDS ORDERED: REGADENOSON 0.4 MG/5 ML SYRINGE IV PRN (09:14)
[2023-05-13] MEDS ORDERED: CAFFEINE CITRATE 60 MG/3 ML VIAL IV PRN (09:14)
[2023-05-13] MEDS: ISOSORBIDE MONONITRATE ER 15 MG TAB PO SCH (09:34)
[2023-05-13] MEDS: INSULIN DETEMIR (LEVEMIR) 100 UNIT/ML SYR SQ SCH ×2 (09:35→21:24)
[2023-05-13] MEDS: ASPIRIN 81 MG PO SCH (09:35)
[2023-05-13] MEDS: SERTRALINE 50 MG TAB PO SCH (09:35)
[2023-05-13] MEDS: ALPRAZolam 1 MG TAB PO SCH ×2 (09:38→21:23)
--- NOTE | 2023-05-13 09:56 | CA ---
Transthoracic Echo Report Name: Linnette Wong Age: 82 Gender: F : 1940 Exam Date: 05/13/2023 07:53 Exam Location: [facility] Ht (in): 65 Wt (lb): 150 Ordering Physician: Bruno Salazar MD Attending/Referring Phys: [employer] Unit Worker Kylah Rodriguez RDCS Procedure CPT: Indications: CP Cardiac Hx: Technical Quality: Fair Contrast 1: Total Dose (mL): Contrast 2: Total Dose (mL): MEASUREMENTS (Male / Female) Normal Values 2D ECHO LV Diastolic Diameter PLAX 3.0 cm 4.2 - 5.9 / 3.9 - 5.3 cm LV Systolic Diameter PLAX 2.1 cm IVS Diastolic Thickness 1.3 cm 0.6 - 1.0 / 0.6 - 0.9 cm LVPW Diastolic Thickness 1.5 cm 0.6 - 1.0 / 0.6 - 0.9 cm LV Relative Wall Thickness 0.9 RV Internal Dim ED PLAX 3.5 cm LVOT Diameter 1.7 cm LA Volume 70.4 cm??? 18 - 58 / 22 - 52 cm??? DOPPLER AV Peak Velocity 151.5 cm/s AV Peak Gradient 9.2 mmHg AV Mean Velocity 100.7 cm/s AV Mean Gradient 4.6 mmHg AV Velocity Time Integral 31.6 cm LVOT Peak Velocity 86.4 cm/s LVOT Peak Gradient 3.0 mmHg LVOT Velocity Time Integral 19.5 cm LVOT Stroke Volume 46.6 cm??? LVOT Stroke Volume Index 26.6 ml/m??? LVOT Cardiac Index 1573.4 cm???/min???m??? AV Area Cont Eq vti 1.5 cm??? AV Area Cont Eq pk 1.4 cm??? MV Area PHT 2.2 cm??? Mitral E Point Velocity 85.6 cm/s Mitral A Point Velocity 102.2 cm/s Mitral E to A Ratio 0.8 MV Deceleration Time 340.7 ms MV E' Velocity 5.0 cm/s Mitral E to MV E' Ratio 17.0 TR Peak Velocity 230.6 cm/s TR Peak Gradient 21.3 mmHg Right Ventricular Systolic Press 26.3 mmHg FINDINGS Left Ventricle Moderately increased left ventricular wall thickness. Left ventricular cavity size normal. Normal left ventricular systolic function with no obvious regional wall motion abnormalities. Left ventricular ejection fraction is estimated at 55-60 %. Right Ventricle Mild right ventricular dilatation. Right ventricular systolic pressure within normal limits. Right Atrium Normal right atrial size. Left Atrium Moderately increased left atrial volume. Mitral Valve Mitral valve thickened. Moderate mitral annular calcification. Mild mitral regurgitation. Aortic Valve Thickened aortic valve without stenosis. No aortic regurgitation. Tricuspid Valve Structurally normal tricuspid valve. Mild tricuspid regurgitation. Pulmonic Valve Trace pulmonic regurgitation. Pericardium No pericardial effusion. Aorta Normal size aortic root and proximal ascending aorta. CONCLUSIONS Normal LV size and systolic function. Mild concentric LVH LVEF estimated at 55-60% Mild mitral regurgitation with mitral annular calcification Aortic valve sclerosis but no stenosis Mild RV dilatation. RVSP estimated at 26 mmHg No prior echo to compare with in database Previewed by: Dr Julio C Torrez (Electronically Signed) Final Date: 13 May 2023 09:55
--- NOTE | 2023-05-13 10:50 | P.CRDCN ---
History of Present Illness Consult date: 05/13/23 History of present illness: HISTORY OF PRESENTING ILLNESS 82-year-old female with past medical history of CVA with residual left-sided weakness, brain aneurysm, right lung cancer status post lobectomy, history of loop recorder, history of moderate nonobstructive CAD, type 2 diabetes hypertension dyslipidemia history of colon cancer and breast cancer. She presented to the hospital with the complaints of left-sided chest pain and feels some shortness of breath. Patient reports that over last 1-2 weeks she has noticed significant reduction in exercise capacity and she gets significantly short of breath with minimal activity that she was able to complete without any difficulty previously. She is also been complaining of left-sided substernal chest pain. Her blood pressure 128/71, heart rate 70 bpm, ECG shows normal sinus rhythm with nonspecific ST-T wave changes, suggestive of mild LVH, Lab shows a creatinine of 1.05, troponin 1 negative, chest x-ray shows mild right lung bases but no concerns of pulmonary condition. PRIOR CARDIAC TESTING Cardiac [place] [address] Joyner shows moderate nonobstructive CAD in all 3 vessels REVIEW OF SYSTEMS 14 point review of system is negative except what is mentioned above in HPI. PHYSICAL EXAMINATION Vital signs reviewed. Head: Normocephalic. Eyes: Sclerae nonicteric. Neck: Brisk carotid upstroke, no jugular venous distention. Lungs: Clear to auscultation. Heart: Regular rate and rhythm, S1-S2, no S3, no murmur or rub. Abdomen: Soft nontender, positive bowel sounds no organomegaly. Extremities: No edema, intact distal pulses. Neurological exam, focal weakness in left upper and lower extremity ASSESSMENT Atypical chest pain, ACS is ruled out Dyspnea on exertion with reduce excess tolerance over last 1-2 weeks Moderate nonobstructive CAD Prior history of CVA with left-sided hemiparesis Cryptogenic stroke, on long-term Eliquis therapy. No concerns of bleeding PLAN I reviewed her echo and she does not have any significant valvular disease on r esting wall motion abnormality We'll obtain a Lexiscan nuclear stress test due to her concerning symptoms and prior history of moderate CAD Continue home medications which include aspirin, atorvastatin, Imdur 30 minutes, benazepril 20 mg daily. Continue Eliquis 5 mg twice a day Past Medical History Past Medical History: Cancer, CVA/TIA, Diabetes Mellitus, Deep Vein Thrombosis (DVT), GERD/Reflux, Hyperlipidemia, Hypertension Additional Past Medical History / Comment(s): lung ,colon and lt breast cancer.constipation, SOB w/exertion, chest pressure for a few months, ?DVT after childbirth 59 yrs. ago, TIA's-left hand is numb most of time, most recent TIA couple weeks ago-was seen , brain aneurysm with surgery History of Any Multi-Drug Resistant Organisms: None Reported Past Surgical History: Bowel Resection, Breast Surgery, Cholecystectomy, Tubal Ligation Additional Past Surgical History / Comment(s): cataracts-lens implants, stones in salivary gland removed, "i had cancer twice in lt breast/lt breast bx/mastectomy. lt lower lobectomy d/t ca. had surg, loop recorder insertion Past Anesthesia/Blood Transfusion Reactions: Previous Problems w/ Anesthesia Additional Past Anesthesia/Blood Transfusion Reaction / Comment(s): always has itching after anesthesia Type of Cardiac Device: Loop Past Psychological History: No Psychological Hx Reported Additional Psychological History / Comment(s): Pt resides alone. She is independent. Smoking Status: Former smoker Past Alcohol Use History: None Reported Additional Past Alcohol Use History / Comment(s): Pt started smoking in 1957 and quit in 1980 Past Drug Use History: None Reported - Past Family History Mother Family Medical History: Coronary Artery Disease (CAD), Diabetes Mellitus Additional Family Medical History / Comment(s): cabg Father Family Medical History: Diabetes Mellitus, Myocardial Infarction ([place]) Additional Family Medical History / Comment(s): Father of a [place] at the age of 56yrs. Brother(s) Additional Family Medical History / Comment(s): dm-heart problems Medications and Allergies Home Medications Medication Instructions Recorded Confirmed Type Benazepril HCl [Lotensin] 20 mg PO HS 08/14/17 05/12/23 History Apixaban [Eliquis] 5 mg PO BID 09/11/21 05/12/23 History Atorvastatin [Lipitor] 80 mg PO HS 09/11/21 05/12/23 History Isosorbide Mononitrate [Isosorbide 30 mg PO DAILY 01/11/22 05/12/23 History Mononitrate ER] ALPRAZolam [Xanax] 1 mg PO BID 05/12/23 05/12/23 History Aspirin EC [Ecotrin Low Dose] 81 mg PO DAILY 05/12/23 05/12/23 History Sertraline HCl [Zoloft] 50 mg PO DAILY 05/12/23 05/12/23 History Tirzepatide [Mounjaro] 2.5 mg SQ WE 05/12/23 05/12/23 History Vitamin D3(Unknown Dose) 1 tab PO HS 05/12/23 05/12/23 History Allergies Allergy/AdvReac Type Severity Reaction Status Date / Time codeine Allergy Rash/Hives Verified 05/12/23 17:00 Physical Exam Vitals: Vital Signs Temp Pulse Pulse Resp BP BP BP 05/13/23 07:00 98 F 58 L 16 133/75 05/13/23 02:00 71 05/13/23 01:45 97.8 F 71 16 128/71 05/12/23 20:40 73 05/12/23 19:28 98.1 F 73 16 131/73 05/12/23 16:25 97.5 F L 77 16 130/73 05/12/23 16:13 97.7 F 76 18 125/65 05/12/23 12:54 98.4 F 118 H 20 135/81 Pulse Ox 05/13/23 07:00 98 05/13/23 02:00 05/13/23 01:45 96 05/12/23 20:40 05/12/23 19:28 96 05/12/23 16:25 95 05/12/23 16:13 98 05/12/23 12:54 99 Intake and Output 05/12/23 05/13/23 05/13/23 22:59 06:59 14:59 Other: # Voids 1 0 Weight 68.039 kg Results 05/12/23 13:20 05/12/23 13:20 Cardiac Enzymes 05/12/23 05/12/23 05/12/23 Range/Units 13:20 13:20 15:50 AST 25 (14-36) U/L Troponin I <0.012 <0.012 (0.000-0.034) ng/mL 05/12/23 Range/Units 18:31 AST (14-36) U/L Troponin I <0.012 (0.000-0.034) ng/mL Coagulation 05/12/23 Range/Units 13:20 PT 11.6 (9.0-12.0) sec APTT 25.4 (22.0-30.0) sec CBC 05/12/23 Range/Units 13:20 WBC 5.0 (3.8-10.6) k/uL RBC 4.10 (3.80-5.40) m/uL Hgb 13.3 (11.4-16.0) gm/dL Hct 39.4 (34.0-46.0) % Plt Count 196 (150-450) k/uL Comprehensive Metabolic Panel 05/12/23 Range/Units 13:20 Sodium 136 L (137-145) mmol/L Potassium 4.7 (3.5-5.1) mmol/L Chloride 103 (98-107) mmol/L Carbon Dioxide 21 L (22-30) mmol/L BUN 25 H (7-17) mg/dL Creatinine 1.05 H (0.52-1.04) mg/dL Glucose 222 H (74-99) mg/dL Calcium 9.5 (8.4-10.2) mg/dL AST 25 (14-36) U/L ALT 17 (4-34) U/L Alkaline Phosphatase 85 (38-126) U/L Total Protein 8.2 (6.3-8.2) g/dL Albumin 4.5 (3.5-5.0) g/dL Current Medications Generic Name Dose Route Start Last Admin Trade Name Freq PRN Reason Stop Dose Admin Alprazolam 1 mg 05/12/23 21:00 05/13/23 09:38 Alprazolam 1 Mg Tab PO 1 mg BID SHARON Administration Aminophylline 100 mg 05/13/23 09:14 Aminophylline 500 Mg/20 Ml Vial IV 05/13/23 13:15 ONCE PRN Patient Response Apixaban 5 mg 05/12/23 21:00 05/12/23 20:40 Apixaban 5 Mg Tab PO 5 mg BID SHARON Administration Protocol Aspirin 81 mg 05/13/23 09:00 05/13/23 09:35 Aspirin 81 Mg PO 81 mg DAILY SHARON Administration Atorvastatin Calcium 80 mg 05/12/23 21:00 05/12/23 20:40 Atorvastatin 80 Mg Tab PO 80 mg HS SHARON Administration Caffeine Citrate 60 mg 05/13/23 09:14 Caffeine Citrate 60 Mg/3 Ml Vial IV 05/13/23 13:15 ONCE PRN Patient Response Dextrose/Water 25 ml 05/12/23 17:31 Dextrose 50% Syringe 50 Ml IVP PER PROTOCOL PRN Hypoglycemia Protocol Dextrose/Water 50 ml 05/12/23 17:31 Dextrose 50% Syringe 50 Ml IVP PER PROTOCOL PRN Hypoglycemia Protocol Sodium Chloride 1,000 mls @ 50 mls/hr 05/12/23 17:30 05/12/23 18:22 Saline 0.9% IV 50 mls/hr .Q20H SHARON Administration Insulin Aspart 0 unit 05/12/23 21:00 05/13/23 06:16 Insulin Aspart (Novolog) 100 Unit/Ml Vial SQ Not Given ACHS SHARON Protocol Insulin Detemir 10 unit 05/12/23 21:00 05/13/23 09:35 Insulin Detemir (Levemir) 100 Unit/Ml Syr 0.15 unit/kg (10 unit) Not Given SQ BID@0700,2100 SHARON Isosorbide Mononitrate 30 mg 05/13/23 09:00 05/13/23 09:34 Isosorbide Mononitrate Er 15 Mg Tab PO 30 mg DAILY SHARON Administration Nitroglycerin 0.4 mg 05/12/23 15:06 Nitroglycerin Sl Tabs 0.4 Mg Tab SUBLINGUAL Q5M PRN Chest Pain Nitroglycerin 1 inch 05/12/23 18:00 05/13/23 05:43 Nitroglycerin Oint 1 Inch/Gm Packet TOPICAL Not Given Q6HR SHARON Regadenoson 0.4 mg 05/13/23 09:14 Regadenoson 0.4 Mg/5 Ml Syringe IV 05/13/23 13:15 ONCE PRN Per Protocol Sertraline HCl 50 mg 05/13/23 09:00 05/13/23 09:35 Sertraline 50 Mg Tab PO 50 mg DAILY SHARON Administration Intake and Output 05/12/23 05/13/23 05/13/23 22:59 06:59 14:59 Other: # Voids 1 0 Weight 68.039 kg 05/12/23 13:20 05/12/23 13:20
[2023-05-13 11:34] LABS: LDL Cholesterol,Calculated 63.9 mg/dL (0.0-131.0)
--- NOTE | 2023-05-13 12:57 | CA ---
Lexiscan Nuclear Stress Test Report Name: Linnette Wong Exam Date: 05/13/2023 12:09 Exam Location: [facility] Ht (in): 65 Wt (lb): 150 BSA: 1.75 Ordering Phys: Julio C Torrez MD Referring Phys: MURTAZA, Technologist: Ronnie Carter Age: 82 Gender: F : 1940 Procedure CPT: Indications: Reflex order-Stress test ICD-10 Codes: Patient History: Medications: SEE CHART Meds past 24 hrs: Pretest Chest Pain: STRESS TEST Lexiscan Protocol Exercise Duration (min:sec): 02:[address] Depressions (mm): Angina Score: Woods Score: Resting HR (bpm): 78 Peak HR (bpm): 118 Resting BP (mmHg): 140 / 75 Peak BP (mmHg): 156 / 86 MPHR: 139 Target HR: 118 % MPHR: 85 METS: 1.0 Total Dose: Peak Dose: Atropine: Double Product: 48793 BP Response: Stress Termination: INFUSION COMPLETE Stress Symptoms: NO SYMPTOMS Stress Summary: ECG ANALYSIS Resting ECG: Stress ECG: CONCLUSIONS RESTING EKG: [Normal sinus rhythm, normal EKG] , Heart rate 77 BPM Patient recieved IV infusion of Lexiscan 0.4mg and at peak infusion STRESS EKG showed: T-wave inversions in inferolateral leads ARRYTHMIAS: [No ectopic rhythms or sustained arrythmias] CONCLUSION: Abnormal ECG response to Lexiscan infusion Nuclear perfusion imaging is reported separately by the radiology team. Please refer to that report for complete interpretation of this study. Dr Julio C Torrez (Electronically Signed) Final Date: 13 May 2023 12:56
[2023-05-13 13:38] LABS: Glucose,Whole Blood 144 mg/dL (70-110)
--- NOTE | 2023-05-13 13:44 | P.PN ---
Subjective Progress Note Date: 05/13/23 Hospital Course: 82-year-old female with PMH of anxiety, history of CVA and left-sided residual weakness, history of brain aneurysm, history of right lung cancer post lobectomy, history of loop recorder, CAD, history of colon cancer and breast cancer, diabetes mellitus, hypertension, dyslipidemia presents to the ED for left-sided chest pain and exertional shortness of breath. In the ED, she was noted to be tachycardic with heart rate in the 110s. Vital signs were otherwise stable. CBC was unremarkable. INR was 1.1. CMP showed sodium 136, bicarb 21, BUN 25, creatinine 1.05, glucose 222. Troponin was less than 0.0122. Magnesium 1.7. Influenza, RSV, COVID-19 negative. Chest x-ray shows right- sided opacity in the lower lobe. EKG shows sinus rhythm with PVCs with nonspeci fic T-wave abnormalities. Patient is admitted for chest pain and exertional shortness of breath with cardiology on consultation. ACS ruled out. Echocardiogram shows LVEF 55-60%, no obvious regional wall motion abnormalities, RVSP 26. Subjective: Patient seen and examined at bedside. No acute events overnight. Denies any significant chest pain. Still has chest tightness with ambulation. Denies any lightheadedness. Pertinent positives and negatives as discussed above, a complete review of systems was performed and all other systems are negative. Vitals Signs Reviewed. General: nontoxic, no distress, appears at stated age Derm: warm, dry Head: atraumatic, normocephalic, symmetric Eyes: EOMI, no lid lag, anicteric sclera Mouth: no lip lesion, mucus membranes moist Cardiovascular: S1S2 reg, no murmur Lungs: CTA bilateral, no rhonchi, no rales , no accessory muscle use Abdominal: soft, nontender to palpation, no guarding, no appreciable organomegaly Ext: no gross muscle atrophy, no edema, no contractures Neuro: CN II-XI grossly intact, no focal neuro deficits Psych: Alert, oriented, appropriate affect Data Reviewed Today: Pertinent Labs: Total cholesterol 135, LDL 63, troponin negative 3, blood sugars range between 124 2 was 16 Imaging: Echocardiogram shows LVEF 55-60%, no obvious regional wall motion abnormalities, RVSP 26. Assessment and Plan: Active: Atypical chest pain Exertional dyspnea History of Nonobstructive CAD Naomi of CVA with residual left-sided weakness, on long-term Eliquis Type 2 diabetes -Cardiology note reviewed, pending stress test -Continue telemetry -Troponin negative 3, ACS ruled out -Continue aspirin and statin -Echocardiogram does not show any regional wall motion abnormalities -Continue sliding scale insulin, and home Levemir 10 units twice a day -Continue Eliquis Chronic: Hypertension Dyslipidemia History of brain aneurysm History of right lung cancer test post lobectomy History of colon cancer and breast cancer DVT ppx: Eliquis Code status: Discussed CODE STATUS, patient would like to be DNR/DNI Anticipated discharge place: Home Anticipated discharge time: Pending clinical course Objective - Vital Signs Vital signs: Vital Signs Temp 98 F 05/13/23 07:00 Pulse 58 L 05/13/23 07:00 Resp 16 05/13/23 07:00 BP 133/75 05/13/23 07:00 Pulse Ox 98 05/13/23 07:00 FiO2 Intake & Output 05/12/23 05/13/23 05/13/23 18:59 06:59 18:59 Weight 68.039 kg Other: # Voids 1 0 - Labs CBC & Chem 7: 05/12/23 13:20 05/12/23 13:20 Labs: Abnormal Lab Results - Last 24 Hours (Table) 05/12/23 05/12/23 05/13/23 Range/Units 18:02 20:19 06:05 POC Glucose (mg/dL) 216 H 274 H 124 H (70-110) mg/dL 05/13/23 Range/Units 13:36 POC Glucose (mg/dL) 144 H (70-110) mg/dL
--- NOTE | 2023-05-13 14:09 | NM ---
EXAMINATION TYPE: NM stress lexiscan cardiolite DATE OF EXAM: 05/13/2023 COMPARISON: 08/15/2017 CLINICAL INDICATION: Female, 82 years old with history of chest pain; TECHNIQUE: After the intravenous administration of 10.2 mCi Tc 99m Sestamibi - Cardiolite resting SP ECT images acquired 45 minutes post injection. The patient received 0.4mg Lexiscan, 26.1 mCi Tc 99m Sestamibi - Stress images obtained [address] injection FINDINGS: Review of stress and rest SPECT images demonstrates perfusion defect along the inferoseptal wall whic h is larger on breast suggesting attenuation artifact. Otherwise, no discrete reversibility is seen. Gated analysis shows normal wall motion with an estimated left ventricular ejection fraction of 81 % . However, TID is mildly increased at 1.21. IMPRESSION: 1. TID is mildly increased at 1.21. Findings may be seen in the setting of multivessel, global induc ible ischemia. Further evaluation as clinically indicated. 2. Otherwise, no focal reversibility is seen. 3. There is redemonstration of inferoseptal fixed perfusion defect that could represent attenuation a rtifact vs old infarct. The former is somewhat favored.
[2023-05-13] MEDS: SODIUM CHLORIDE 0.9% 1,000 ML IV SCH (15:55)
[2023-05-13 17:01] LABS: Glucose,Whole Blood 149 mg/dL (70-110)
[2023-05-13] MEDS: APIXABAN 5 MG TAB PO SCH ×2 (17:10→21:23)
[2023-05-13] MEDS ORDERED: lisinopriL 20 MG TAB PO SCH (21:00)
[2023-05-13 21:08] LABS: Glucose,Whole Blood 174 mg/dL (70-110)
[2023-05-13] MEDS: ATORVASTATIN 80 MG TAB PO SCH (21:23)
[2023-05-14] MEDS: NITROGLYCERIN OINT 1 INCH/GM PACKET TOPICAL SCH ×2 (00:50→06:02)
[2023-05-14 03:16] VITALS: RESP 14
[2023-05-14 06:17] LABS: Glucose,Whole Blood 121 mg/dL (70-110)
[2023-05-14] MEDS: INSULIN ASPART (NovoLOG) 100 UNIT/ML VIAL SQ SCH (06:19)
[2023-05-14 08:12] VITALS: BP 155/75; PULSE 65; TEMP 98.4
[2023-05-14] MEDS: ISOSORBIDE MONONITRATE ER 15 MG TAB PO SCH (08:16)
[2023-05-14] MEDS: SERTRALINE 50 MG TAB PO SCH (08:16)
[2023-05-14] MEDS: SODIUM CHLORIDE 0.9% 1,000 ML IV SCH (08:16)
[2023-05-14] MEDS: ASPIRIN 81 MG PO SCH (08:16)
[2023-05-14] MEDS: ALPRAZolam 1 MG TAB PO SCH (08:16)
--- NOTE | 2023-05-14 09:44 | P.PN ---
Subjective Progress Note Date: 05/14/23 Subjective: Patient is doing well from cardiac vessel standpoint. She denies any active complaints at this moment. Blood pressure 150/75, heart rate 65 beats a minute. I reviewed her nuclear stress test which showed fixed inferolateral perfusion defect which is somewhat similar to her prior nuclear stress test from 2017. He does note that there is mild transient ischemic dilatation on the nuclear stress test measuring at 1.2. At this time as patient does not have any high-risk findings and his rule out of acute coronary syndrome, I would recommend that she should follow-up with her primary change management director Dr. Joyner to review her nuclear stress test results and decide if she needs a repeat heart catheterization. PHYSICAL EXAMINATION Vital signs reviewed. Head: Normocephalic. Eyes: Sclerae nonicteric. Neck: Brisk carotid upstroke, no jugular venous distention. Lungs: Clear to auscultation. Heart: Regular rate and rhythm, S1-S2, no S3, no murmur or rub. Abdomen: Soft nontender, positive bowel sounds no organomegaly. Extremities: No edema, intact distal pulses. Neurological exam, focal weakness in left upper and lower extremity ASSESSMENT Atypical chest pain, ACS is ruled out Dyspnea on exertion with reduce exercise tolerance over last 1-2 weeks Moderate nonobstructive CAD Prior history of CVA with left-sided hemiparesis Cryptogenic stroke, on long-term Eliquis therapy. No concerns of bleeding PLAN I reviewed her echo and she does not have any significant valvular disease on resting wall motion abnormality Lexiscan nuclear stress test showed fixed inferolateral perfusion defect moderate size moderate intensity. This has not appear to be worsened when compared to her prior nuclear stress test from 2017. The stress test as noted that she has mild transient ischemic dilatation. After reviewing all this information and prior heart catheterization from last year I feel that this is a low-risk finding. She is recommended to follow up outpatient with Dr. Joyner to go over the nuclear stress is alert and decide if she needs another heart catheterization. Continue home medications which include aspirin, atorvastatin, Imdur 30 minutes, benazepril 20 mg daily. Continue Eliquis 5 mg twice a day HISTORY OF PRESENTING ILLNESS 82-year-old female with past medical history of CVA with residual left-sided weakness, brain aneurysm, right lung cancer status post lobectomy, history of loop recorder, history of moderate nonobstructive CAD, type 2 diabetes hypertension dyslipidemia history of colon cancer and breast cancer. She presented to the hospital with the complaints of left-sided chest pain and feels some shortness of breath. Patient reports that over last 1-2 weeks she has noticed significant reduction in exercise capacity and she gets significantly short of breath with minimal activity that she was able to complete without any difficulty previously. She is also been complaining of left-sided substernal chest pain. Her blood pressure 128/71, heart rate 70 bpm, ECG shows normal sinus rhythm with nonspecific ST-T wave changes, suggestive of mild LVH, Lab shows a creatinine of 1.05, troponin 1 negative, chest x-ray shows mild right lung bases but no concerns of pulmonary condition. PRIOR CARDIAC TESTING Cardiac [place] [address] Joyner shows moderate nonobstructive CAD in all 3 vessels REVIEW OF SYSTEMS 14 point review of system is negative except what is mentioned above in HPI. Objective - Vital Signs Vital signs: Vital Signs Temp 98.4 F 05/14/23 08:11 Pulse 65 05/14/23 08:11 Resp 14 05/14/23 08:11 BP 155/75 05/14/23 08:11 Pulse Ox 97 05/14/23 08:11 FiO2 Intake & Output 05/13/23 05/14/23 05/14/23 18:59 06:59 18:59 Other: Voiding Method Toilet # Voids 1 1 - Labs CBC & Chem 7: 05/12/23 13:20 05/12/23 13:20 Labs: Abnormal Lab Results - Last 24 Hours (Table) 05/13/23 05/13/23 05/13/23 Range/Units 13:36 17:00 21:06 POC Glucose (mg/dL) 144 H 149 H 174 H (70-110) mg/dL 05/14/23 Range/Units 06:16 POC Glucose (mg/dL) 121 H (70-110) mg/dL
[2023-05-14] MEDS ORDERED: RANOLAZINE 500 MG TAB.ER.12H PO SCH (09:45)
[2023-05-14] MEDS: APIXABAN 5 MG TAB PO SCH (10:18)
--- NOTE | 2023-05-14 11:11 | P.DS ---
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 In the ED, she was noted to be tachycardic with heart rate in the 110s. Vital signs were otherwise stable. CBC was unremarkable. INR was 1.1. CMP showed sodium 136, bicarb 21, BUN 25, creatinine 1.05, glucose 222. Troponin was less than 0.0122. Magnesium 1.7. Influenza, RSV, COVID-19 negative. Chest x-ray shows right- sided opacity in the lower lobe. EKG shows sinus rhythm with PVCs with nonspecific T-wave abnormalities. Patient is admitted for chest pain and exertional shortness of breath with cardiology on consultation. ACS ruled out. Echocardiogram shows LVEF 55-60%, no obvious regional wall motion abnormalities, RVSP 26. Patient does have abnormal EKG response to Lexiscan. Lexiscan stress test did show TID mildly increased at 1.21, possibly the setting of multivessel, global inducible ischemia, no focal reversibility seen, inferior septal fixed perfusion defect noted which could represent attenuation artifact versus old infarct. Personally discussed plan with cardiology, stress test results similar to prior stress test done in 2017. Ranolazine added to her regimen. Patient to follow-up with outpatient child life therapist, and determine the need for further cardiac workup. Patient seen and examined at bedside. Vital signs reviewed and stable. General: nontoxic, no distress, appears at stated age Derm: warm, dry Head: atraumatic, normocephalic, symmetric Eyes: EOMI, no lid lag, anicteric sclera Mouth: no lip lesion, mucus membranes moist Cardiovascular: S1S2 reg, no murmur Lungs: CTA bilateral, no rhonchi, no rales , no accessory muscle use Abdominal: soft, nontender to palpation, no guarding, no appreciable organomegaly Ext: no gross muscle atrophy, no edema, no contractures Neuro: CN II-XI grossly intact, no focal neuro deficits Psych: Alert, oriented, appropriate affect A total of 36 minutes of time were spent preparing this complex discharge summary. Patient was discharged on 05/14/23 at 9:55. Patient Condition at Discharge: Stable Plan - Discharge Summary New Discharge Prescriptions: New Ranolazine [Ranexa] 500 mg PO Q12HR #60 tab Continue Benazepril HCl [Lotensin] 20 mg PO HS Apixaban [Eliquis] 5 mg PO BID Aspirin EC [Ecotrin Low Dose] 81 mg PO DAILY Atorvastatin [Lipitor] 80 mg PO HS Isosorbide Mononitrate [Isosorbide Mononitrate ER] 30 mg PO DAILY Sertraline HCl [Zoloft] 50 mg PO DAILY Tirzepatide [Mounjaro] 2.5 mg SQ WE ALPRAZolam [Xanax] 1 mg PO BID Vitamin D3(Unknown Dose) 1 tab PO HS Discharge Medication List Benazepril HCl [Lotensin] 20 mg PO HS 08/14/17 [History] Apixaban [Eliquis] 5 mg PO BID 09/11/21 [History] Atorvastatin [Lipitor] 80 mg PO HS 09/11/21 [History] Isosorbide Mononitrate [Isosorbide Mononitrate ER] 30 mg PO DAILY 01/11/22 [History] ALPRAZolam [Xanax] 1 mg PO BID 05/12/23 [History] Aspirin EC [Ecotrin Low Dose] 81 mg PO DAILY 05/12/23 [History] Sertraline HCl [Zoloft] 50 mg PO DAILY 05/12/23 [History] Tirzepatide [Mounjaro] 2.5 mg SQ WE 05/12/23 [History] Vitamin D3(Unknown Dose) 1 tab PO HS 05/12/23 [History] Ranolazine [Ranexa] 500 mg PO Q12HR #60 tab 05/14/23 [Rx] Follow up Appointment(s)/Referral(s): Alecia Joyner MD [STAFF PHYSICIAN] - 05/21/23 9:45 am (Appointment made at the main office on [address] ) Garrett Grier MD [Primary Care Provider] - 05/16/23 11:00 am Patient Instructions/Handouts: Chest Pain (DC) Activity/Diet/Wound Care/Special Instructions: Please see your child life therapist. Discharge Disposition: HOME SELF-CARE
== END 2023-05-14 11:58 | disposition home or self-care (01) ==
LOC: EC 12:52 → 6NMEDSUR 15:06
PROVIDERS: ADMIT Internal Medicine; ATTEND Internal Medicine
DX: R07.89 Other chest pain (principal); R06.09 Other forms of dyspnea; R42 Dizziness and giddiness; E11.65 Type 2 diabetes mellitus with hyperglycemia; K21.9 Gastro-esophageal reflux disease without esophagitis; E78.5 Hyperlipidemia, unspecified; I10 Essential (primary) hypertension; F41.9 Anxiety disorder, unspecified; I25.10 Atherosclerotic heart disease of native coronary artery without angina pectoris; N17.9 Acute kidney failure, unspecified; I69.354 Hemiplegia and hemiparesis following cerebral infarction affecting left non-dominant side; Z85.3 Personal history of malignant neoplasm of breast; Z85.038 Personal history of other malignant neoplasm of large intestine; Z85.118 Personal history of other malignant neoplasm of bronchus and lung; Z86.718 Personal history of other venous thrombosis and embolism; Z20.822 Contact with and (suspected) exposure to COVID-19; Z79.82 Long term (current) use of aspirin; Z79.899 Other long term (current) drug therapy; Z79.01 Long term (current) use of anticoagulants; Z79.4 Long term (current) use of insulin; Z88.5 Allergy status to narcotic agent
CPT/HCPCS: 96360; 96361 ×2; 96372; 99285; 36415; 93005; 93017; 93306; 80061; 80053; 83735; 84484; 85025; 85610; 85730; 87636; 71046; 78452; G0378 ×3; A9500; J2785